=== PATIENT | female | born 1950 | race Caucasian/White ===

== ENCOUNTER → 2016-08-28 | Outpatient (CLI) | payer MEDICARE, BC, OTHER ==
[~2016-08-28] MED LIST: ASPI81TA85 PO; CALCTAB43 PO; DRIS50002 PO; LASI20TA PO; LOVE0.8I SC; MULT1TAB18 PO; OMEP40CA2 PO; SONA10CA6 PO; TAPA5TAB PO; WELLTAB40 PO
--- NOTE | 2016-08-28 12:13 | REP ---
Left lower extremity Duplex Doppler venous ultrasound: Real time compression and duplex Doppler interrogation of the left lower extremity deep venous system is performed. The left common femoral, superficial femoral and popliteal veins are fully compressible with transducer pressure and demonstrate normal spontaneous and phasic flow, without evidence of deep venous thrombosis. Impression: No evidence of deep venous thrombosis of the left lower extremity femoral popliteal venous system. Popliteal cyst is noted medially measuring 1.6 x 0.9 x 1.4 cm. Signed by Christian Mendez MD 08/28/2016 12:04 P
== END ==
LOC: M RAD 10:47
PROVIDERS: ATTEND Physician Assistant Medical
DX: I80.02 Phlebitis and thrombophlebitis of superficial vessels of left lower extremity (principal); M71.22 Synovial cyst of popliteal space [Baker], left knee
CPT/HCPCS: 93971; G0463

== ENCOUNTER 2016-09-13 08:52 | Inpatient (IN) | payer MEDICARE, BC, OTHER ==
[~2016-09-13] VITALS: Ht 167.6 cm; Wt 86.2 kg
[2016-09-13] MEDS ORDERED: MULT1TAB18 PO (09:35)
[2016-09-13] MEDS ORDERED: SONA10CA6 PO (09:35)
[2016-09-13] MEDS ORDERED: ASPI81TA85 PO (09:35)
[2016-09-13] MEDS ORDERED: CALCTAB43 PO (09:35)
[2016-09-13] MEDS ORDERED: TAPA5TAB PO (09:35)
[2016-09-13] MEDS ORDERED: LASI20TA PO (09:35)
[2016-09-13] MEDS ORDERED: OMEP40CA2 PO (09:35)
[2016-09-13] MEDS ORDERED: WELLTAB40 PO (09:35)
[2016-09-13] MEDS ORDERED: DRIS50002 PO (09:35)
[2016-09-13 09:50] LABS: BASO % 0.6 % (0.0-1.0); EOS # 0.2 K/mm3 (0.0-0.50); EOS % 2.7 % (0.0-3.0); LARGE UNSTAINED CELL # 0.2 K/mm3 (0.0-0.4); LARGE UNSTAINED CELL % 2.1 % (0.0-4.0); LYMPH # 2.2 K/mm3 (1.5-4.5); LYMPH % 23.1 % (24.0-44.0); MEAN CORPUSCULAR HGB CONC 33.1 g/dl (32.0-36.5); MEAN CORPUSCULAR VOLUME 84.6 fl (80.0-96.0); MONO # 0.8 K/mm3 (0.0-0.8); MONO % 8.9 % (0.0-5.0); NEUTROPHILS # 5.4 K/mm3 (1.8-7.7); NEUTROPHILS % 62.5 % (36.0-66.0); PLATELET COUNT, AUTOMATED 285 k/mm3 (150-450); WHITE BLOOD COUNT 8.6 K/mm3 (4.0-10.0)
[2016-09-13] MEDS ORDERED: ISOVUE-370 76% 100ML VIAL (Q9967) As Ordered ONE (10:02)
[2016-09-13 10:03] LABS: INR 0.89
[2016-09-13 10:20] LABS: ALBUMIN 3.8 GM/DL (3.2-5.2); ALBUMIN/GLOBULIN RATIO 0.93 (1.00-1.93); ALKALINE PHOSPHATASE 121 U/L (45-117); ALT/SGPT 26 U/L (12-78); ANION GAP 11 MEQ/L (8-16); AST/SGOT 26 U/L (15-37); BILIRUBIN,DIRECT 0.1 MG/DL (0.0-0.2); BILIRUBIN,TOTAL 0.4 MG/DL (0.2-1.0); BLOOD UREA NITROGEN 16 MG/DL (7-18); CALCIUM LEVEL 9.6 MG/DL (8.8-10.2); CARBON DIOXIDE LEVEL 27 MEQ/L (21-32); CHLORIDE LEVEL 103 MEQ/L (98-107); CREATININE FOR GFR 0.82 MG/DL (0.55-1.02); GLOMERULAR FILTRATION RATE > 60.0 (>45); GLUCOSE, FASTING 104 MG/DL (80-110); SODIUM LEVEL 141 MEQ/L (136-145); TOTAL PROTEIN 7.9 GM/DL (6.4-8.2)
[2016-09-13] MEDS ORDERED: ASPIRIN 325 MG TAB PO ONE (10:45)
--- NOTE | 2016-09-13 11:13 | REP ---
BILATERAL LOWER EXTREMITY DUPLEX VENOUS ULTRASOUND: HISTORY: Shortness of breath and chest pain, question DVT. COMPARISON: Venous sonography left lower extremity, August 28, 2016. TODAY'S SONOGRAPHIC FINDINGS: The deep veins are anechoic and fully compressible from the groin to the popliteal fossa in the right lower extremity on two-dimensional scanning. Color-flow imaging is homogeneous. Spectral Doppler interrogation demonstrates intact respiratory variation in flow and normal manual augmentation of flow. There is no evidence of right lower extremity duplex venous thrombosis. On the left, a Parkinson cyst is seen in the posterior popliteal soft tissues measuring 2.3 x 2.0 x 1.3 cm. There is occlusive thrombus in the proximal greater saphenous vein on the left side. This extends for a short segment into the common femoral vein, consistent with deep vein thrombosis. The common femoral vein thrombus is nonocclusive. The femoral vein and popliteal vein are anechoic and fully compressible with unremarkable Doppler flow. IMPRESSION: 1. Negative right lower extremity duplex venous ultrasound. 2. Deep vein thrombosis on the left with nonocclusive thrombus in the common femoral vein extending from the proximal greater saphenous vein. Occlusive greater saphenous vein thrombosis is seen. Signed by Sang Jeffries MD 09/13/2016 06:18 P
--- NOTE | 2016-09-13 11:14 | REP ---
CT PULMONARY ANGIOGRAM: With IV contrast. HISTORY: Question pulmonary embolism. Shortness of breath and chest pain. No comparison study. Contrast dose: 75 mL of Isovue [address] TECHNIQUE: Helical scanning is acquired and overlapping 1.5 mm and contiguous 3 mm axial images are reformatted. In addition, a 3D work station is deployed to generate thick slab maximum intensity projection images in sagittal and coronal imaging projections. CT PULMONARY ANGIOGRAPHIC FINDINGS: There is good opacification of the pulmonary arterial tree. There are multiple filling defects in the central segmental and subsegmental pulmonary arteries bilaterally involving the right upper lobe, right lower lobe, left lower lobe and left upper lobe. No central thrombi are seen. Thoracic aorta is unremarkable except for some vascular calcification. No infiltrate or infarction is seen in the lung harvey. There are granulomatous calcifications in the left lower lobe. Granulomatous calcifications are scattered about the spleen. There are lymph node calcific residuals in the left hilus. No hilar adenopathy is seen. The thyroid gland is enlarged bilaterally with multiple nodules and two left-sided calcifications. There is a sliding type hiatal hernia. There is moderate diffuse fatty infiltration of the liver. No pulmonary mass lesion is seen. IMPRESSION: 1. Moderate burden of bilateral segmental and subsegmental pulmonary emboli; upper and lower lobes on each side. 2. Hiatal hernia. 3. Old granulomatous changes. 4. Multinodular goiter. 5. Fatty infiltration of the liver. Signed by Sang Jeffries MD 09/13/2016 06:18 P
--- NOTE | 2016-09-13 11:20 | ECGEPIP ---
Stationary ECG Study [facility] - ED Test Date: 2016-09-13 Pat Name: SINCERE MCCAIN Department: Room: - Gender: F [employer] Operator: zia : 1950 Requested By: Belkis Salmeron Order Number: [id number] Reading MD: Jordan Kenney Measurements Intervals [place] Rate: 82 P: 64 VT: 178 QRS: -12 QRSD: 81 T: 82 QT: 374 QTc: 438 Interpretive Statements SINUS RHYTHM INFERIOR MYOCARDIAL INFARCTION, OF INDETERMINATE AGE NO PRIORS Electronically Signed On 09-13-2016 11:20:22 EDT by Jordan Kenney
[2016-09-13] MEDS ORDERED: ENOXAPARIN 100MG/1ML SYRINGE (J1650) SC ONE (12:00)
[2016-09-13 12:56] LABS: FREE T4 1.37 NG/DL (0.76-1.46)
--- NOTE | 2016-09-13 16:04 | HPE ---
DATE OF ADMISSION: 09/13/2016 CHIEF COMPLAINT: Dyspnea on exertion. Elsa is a 65-year-old woman who is followed by Dr. Castro and has been seen recently several times related to problem on her left leg. She had swelling discomfort left calf and was diagnosis correctly with in retrospect was seems to be correct with cellulitis and superficial thrombophlebitis. The leg seemed to be getting better with less swelling and discomfort, although tender ropey thrombosed veins are still apparent. Then beginning 5 days ago she began have sensation of discomfort in her left chest and the left arm, aching and a sense of dyspnea with exertion. She contacted care provider today and was directed appropriately to come to ED for evaluation. Emergency department (ED) evaluation Included ultrasound and CT angiography. Vascular ultrasound showed deep vein thrombus in the left with nonocclusive thrombus in the common femoral vein extending from the proximal great saphenous vein. Occlusive greater saphenous vein thrombosis is also seen. There was also a Parkinson's cyst measuring 2.3 x 2.0 x 1.3 cm. The right appeared to be normal. Also done was CT angiography interpreted by Dr. Jeffries that shows some moderate burden of bilateral segmental and subsegmental pulmonary emboli upper and lower lobes and I a hiatal hernia, old granulomatous changes, a multinodular goiter and fatty infiltration of liver. PAST MEDICAL HISTORY: Includes toxic multinodular goiter. 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 She quit smoking age 46, diabetes mellitus type 2 historically, and degenerative disk disease lumbar with anterolisthesis demonstrated in September 2012. She had colonoscopy in 2011 and in 2005. FAMILY HISTORY: Remarkable for father dying of renal cancer and past history of colon cancer. Mother diabetes mellitus, hypertension, still alive. Sister with diabetes and a son with multiple sclerosis. Last Pap smear was in 2014. She had thyroid fine-needle aspiration done in 2013. She was negative. REVIEW OF SYSTEMS: No trouble with vision. No recent headaches. No recent trouble with nausea, vomiting or diarrhea, heartburn has been well-controlled by her current treatment. No wheezing, no cough productive, no fevers, chills, etc. No rashes other than the redness on the left leg associated with the cellulitis recently noted. No numbness, tingling, fainting or loss of consciousness. No dysuria. PHYSICAL EXAMINATION: VITAL SIGNS: The patient is demonstrating temperature of 98.9, pulse 84. Initial systolic pressure 165, diastolic 90, subsequently found to be 133/69 and pulse 16, respiratory rate 90, O2 sat ranges from 90-96%. GENERAL: She is alert, pleasant, no apparent distress. She is conversant and does not look to be dyspneic. HEENT: Normocephalic, atraumatic. Full extraocular movements. No proptosis. No stare. No lid lack. Oropharynx unremarkable. Palpable adenopathy. The right lobe of thyroid is significantly enlarged, nontender, firmish. LUNGS: Clear to auscultation. Good air flow throughout. No dullness. HEART: Regular rhythm. No murmurs, gallops or rubs are noted. EXAMINATION OF THE ABDOMEN: Shows protuberant rounded abdomen, Nontender. No mass, guarding or rebound. EXTREMITIES: Show no deformity and no significant edema. She does have a palpable tender varicose vein medial left calf. Some redness but no open areas are noted. Pulses are intact and normal throughout. She has 2+ upper and lower extremities. There is no pedal edema. There is no clubbing. NEURO EXAM: Shows patient to be alert, oriented, fully conversant. No cranial nerve deficits or detected. Moves all extremities well. No sensory deficits detected. Gait was not tested. LABORATORY DATA: Pro time and PTT within normal limits.. Glucose 104, BUN 16, creatinine 0.82, sodium 141, potassium 4.0, chloride 103, CO2 27, anion gap calculated at 11. Calcium 9.6. AST and ALT are both 26. CPK 271, CK-MB 2.4, MB-CK relative index of 3.38. Alkaline phosphatase 121, bilirubin 0.4, total was 0.1. Direct albumin 3.8. Troponin I 0.14, BNP 160. CBC shows a total white count of 86,000 with hemoglobin of 13.5. Differential is remarkable only for slightly low lymphocyte percentage at 23.1% 8 monocytes count of 8.9%. EKG Q-waves in III and F. Cannot rule out previous inferior wall [place]. ASSESSMENT: The patient admitted with pulmonary embolus symptoms including transient left chest pain, dyspnea on exertion after approximately 1 month duration of history of superficial thrombophlebitis and now evidence of deep vein thrombosis. This is her first episode of deep vein clotting and there is no definite family history of deep vein thrombosis. The patient has provocative factors specifically of the superficial varicosities which show evidence of active thrombosis. PLAN: She will be admitted. Lovenox 90 mg subcu every 12 hours. This will run for total of 5 days. Anticipate that hospital stay until we are convinced that she is stable and improving on this regimen. At the end of 5 days she will transition to oral agent. The patient's preference at this time would be a novel or oral anticoagulant such as Xarelto or Lovenox as opposed to warfarin. The GERD will be treated with house PPI substituting for her omeprazole. Resuming her usual omeprazole upon discharge. Will continue Wellbutrin for history of depression. The non alcoholic steatohepatitis requires no benefits from no active current treatment and simply will be monitored. Of course DVT prophylaxis is being provided in the form of acute action treatment for fresh clot. Activity will be as tolerated on the floor. Oxygen support to keep her sat above 92%. Anticipate discharge in 2-3 days once we are convinced that her pulmonary embolism situation stabilized. Recommended admission to a monitored floor because of the pulmonary embolus burden.
[2016-09-13 17:15] VITALS: BP 140/71
[2016-09-13] MEDS: FUROSEMIDE 20 MG TAB PO SCH (17:39)
[2016-09-13 19:52] VITALS: BP 133/72
[2016-09-13] MEDS: ENOXAPARIN 100MG/1ML SYRINGE (J1650) SC SCH (22:00)
[2016-09-13] MEDS: buPROPion **XL** TABLET 150MG (WELLBUTRIN XL) PO SCH (22:00)
[2016-09-13 23:59] VITALS: BP 123/63
[2016-09-14 04:00] VITALS: BP 115/63
[2016-09-14 06:13] LABS: ANION GAP 8 MEQ/L (8-16); BLOOD UREA NITROGEN 15 MG/DL (7-18); CALCIUM LEVEL 9.1 MG/DL (8.8-10.2); CARBON DIOXIDE LEVEL 27 MEQ/L (21-32); CHLORIDE LEVEL 105 MEQ/L (98-107); CREATININE FOR GFR 0.71 MG/DL (0.55-1.02); GLOMERULAR FILTRATION RATE > 60.0 (>45); GLUCOSE, FASTING 105 MG/DL (80-110); POTASSIUM SERUM 4.1 MEQ/L (3.5-5.1); SODIUM LEVEL 140 MEQ/L (136-145)
[2016-09-14] MEDS: ACETAMINOPHEN TAB 650MG DOSE (2X325MG) PO PRN ×2 (06:59→15:28)
[2016-09-14 08:00] VITALS: BP 124/67
[2016-09-14] MEDS: ENOXAPARIN 100MG/1ML SYRINGE (J1650) SC SCH ×2 (09:57→20:51)
[2016-09-14] MEDS: PANTOPRAZOLE 40MG TAB (PROTONIX) PO SCH (09:59)
[2016-09-14] MEDS: FUROSEMIDE 20 MG TAB PO SCH (09:59)
[2016-09-14 10:05] LABS: MEAN CORPUSCULAR HEMOGLOBIN 27.2 pg (27.0-33.0); MEAN CORPUSCULAR HGB CONC 32.1 g/dl (32.0-36.5); MEAN CORPUSCULAR VOLUME 84.9 fl (80.0-96.0); RED CELL DISTRIBUTION WIDTH 13.1 % (11.5-14.5); WHITE BLOOD COUNT 7.4 K/mm3 (4.0-10.0)
--- NOTE | 2016-09-14 11:12 | IPNPDOC ---
Subjective Date Seen The patient was seen on 09/14/16. Subjective Chief Complaint/HPI The patient is a 65-year-old female admitted with a reason for visit of Lef Leg Dvt, Pulmonary Embolism. Constitutional: Denies: Chills, Fatigue, Weakness Skin: Reports: Other ( skin left medial calf with varicose veins with thrombosis, no change, no acute inflammation.), Denies: Jaundice, Rash Pulmonary: Denies: Cough, Dyspnea, Pleuritic Chest Pain Cardiovascular: Denies: Chest Pain, Edema, Orthopnea, Palpitations Objective Physical Examination General Exam: Positive: Cooperative, No Acute Distress Chest Exam: Positive: Clear to auscultation, Normal air movement, Negative: Rales, Rhonchi, Wheezing Heart Exam: Positive: Normal S1, Normal S2, Rate Normal, Regular Rhythm Extremity Exam: Positive: Other (varicose veins with thrombosis, left medial calf.) Skin Exam: Positive: Other skin issue (stasis changes left leg, vs post- inflammatory hyperpigmentation), Negative: Breakdown Neuro Exam: Positive: Normal Gait, Normal Speech Assessment /Plan Problems (1) Pulmonary embolism Status: Acute (2) Left leg DVT Status: Acute (3) Toxic multinodular goiter Status: Chronic Response to Treatment: Stable Problem Specific Plan: Monitor Clinically Plan/VTE VTE Prophylaxis Ordered?: Yes Plan Activity: Continue Current Anticipated Discharge: Home (Home tomorrow with Lovenox at current dose, change to Xarelto on day 6) VS, I&O, 24H, Joann Vital Signs/I&O Vital Signs Date Time Temp Pulse Resp B/P Pulse Ox O2 Delivery O2 Flow Rate FiO2 09/14/16 08:00 98.5 77 18 124/67 95 Room Air I&O- Last 24 Hours up to 6 AM 09/14/16 06:00 Intake Total 920 ml Output Total 500 ml Balance 420 ml Laboratory Data 24H LABS Laboratory Tests 2 09/13/16 12:58: Creatine Kinase MB 2.3, Creatine Kinase MB Relative Index 3.96, Total Creatine Kinase 58, Troponin I 0.14H 09/13/16 20:01: Creatine Kinase MB 2.3, Creatine Kinase MB Relative Index 4.18H, Total Creatine Kinase 55, Troponin I 0.11#H 09/14/16 05:42: Creatine Kinase MB 1.9, Creatine Kinase MB Relative Index 3.58, Total Creatine Kinase 53, Troponin I 0.13H, Anion Gap 8, Blood Urea Nitrogen 15, Creatinine 0.71, Sodium Level 140, Potassium Level 4.1, Chloride Level 105, Carbon Dioxide Level 27, Calcium Level 9.1, Glomerular Filtration Rate > 60.0 CBC/BMP Laboratory Tests 09/14/16 05:42 Calcium Level 9.1, Total Creatine Kinase 53 09/14/16 09:50 Red Blood Count 4.61, Mean Corpuscular Volume 84.9, Mean Corpuscular Hemoglobin 27.2, Mean Corpuscular Hemoglobin Concent 32.1, Red Cell Distribution Width 13.1 Parish El MD Sep 14, 2016 11:12
[2016-09-14] MEDS ORDERED: LOVE0.8I SC (11:19)
[2016-09-14 13:15] VITALS: BP 139/74
[2016-09-14] MEDS: buPROPion **XL** TABLET 150MG (WELLBUTRIN XL) PO SCH (20:50)
[2016-09-14 22:00] VITALS: BP 125/67
[2016-09-15 06:00] VITALS: BP 128/62
[2016-09-15 07:42] LABS: ANION GAP 7 MEQ/L (8-16); BLOOD UREA NITROGEN 16 MG/DL (7-18); CALCIUM LEVEL 9.6 MG/DL (8.8-10.2); CARBON DIOXIDE LEVEL 29 MEQ/L (21-32); CHLORIDE LEVEL 104 MEQ/L (98-107); CREATININE FOR GFR 0.71 MG/DL (0.55-1.02); GLOMERULAR FILTRATION RATE > 60.0 (>45); GLUCOSE, FASTING 107 MG/DL (80-110); POTASSIUM SERUM 4.6 MEQ/L (3.5-5.1); SODIUM LEVEL 140 MEQ/L (136-145)
[2016-09-15] MEDS: ENOXAPARIN 100MG/1ML SYRINGE (J1650) SC SCH (08:40)
[2016-09-15] MEDS: PANTOPRAZOLE 40MG TAB (PROTONIX) PO SCH (08:42)
[2016-09-15] MEDS: FUROSEMIDE 20 MG TAB PO SCH (08:42)
[2016-09-15] MEDS ORDERED: PREVNAR 13 VACCINE SYRINGE (CPT CODE:90670) IM ONE (09:00)
--- NOTE | 2016-09-16 09:33 | DSES ---
DATE OF ADMISSION: 09/13/2016 DATE OF DISCHARGE: 09/15/2016 ATTENDING PHYSICIAN: Dr. Parish El PRIMARY CARE PROVIDER: Dr. Felipe Castro and Elsa Conley PA-C 65-year-old female who had been seen recently several times prior to presentation to the [facility] emergency department for swelling and discomfort to the left calf and treatment for cellulitis with superficial thrombophlebitis. On workup in the emergency room, which included ultrasound CT angiography, the patient was found to have a non-occlusive thrombus in the common femoral vein extending from the proximal great saphenous vein. Occlusive greater saphenous vein thrombosis was also seen. CT of chest demonstrated moderate burden of bilateral segmental and subsegmental pulmonary emboli upper and lower lobes along with a hiatal hernia. The patient was subsequently admitted and placed on Lovenox 90 mg twice a day subcutaneous and monitored for any breathing abnormalities. The patient has progressed well and is able to ambulate without hypoxia, palpitations, or chest pain. She has been off of oxygen throughout the hospitalization. Vital signs have remained stable. Labs have remained stable. Most recent CBC shows a hemoglobin and hematocrit (H and H) of 12 and 39, white blood cell count of 7,000. HEENT: Neck is supple, without lymphadenopathy or jugular venous distention (JVD). Cardiovascular: Heart rate and rhythm regular. Pulmonary: Lungs clear to auscultation bilaterally. ASSESSMENT: 1. Pulmonary embolus. 2. Deep vein thrombosis. 3. History of hyperthyroidism with toxic multinodular goiter. 4. Depression. 5. Gastroesophageal reflux disease (GERD). 6. Non-alcoholic fatty liver disease. PLAN: The patient will be discharged home. Diet is as tolerated. Activity is as tolerated. Medications: - Lovenox 90 mg subcutaneous twice a day for 6 more doses, patient will then transition to Xarelto starter pack which is already sent to her pharmacy The rest of her medications include: - bupropion 30 mg by mouth at bedtime - calcium with vitamin D 600 calcium with 400 international units of vitamin D one daily - furosemide 20 mg by mouth daily - Tapazole 5 mg tablet, she is to take 1 and1/2 tablets by mouth twice a day - multivitamin 1 daily - omeprazole 40 mg daily - Sonata 10 mg by mouth daily as needed sleep - vitamin D 50,000 international units by mouth monthly Aspirin was stopped due to the initiation of Lovenox. Patient is discharged in stable and satisfactory condition with no further questions at the time of discharge.
== END 2016-09-15 09:56 | disposition home or self-care (01) | DRG 176 ==
LOC: M ED 11:12 → M ED INP 12:05 → M PCU 17:17 → M MS5PR 09-14 13:14
PROVIDERS: ADMIT Family Medicine; ATTEND Family Medicine
DX: I26.99 Other pulmonary embolism without acute cor pulmonale (principal); I82.412 Acute embolism and thrombosis of left femoral vein; I82.812 Embolism and thrombosis of superficial veins of left lower extremity; K76.0 Fatty (change of) liver, not elsewhere classified; K21.9 Gastro-esophageal reflux disease without esophagitis; F32.9 Major depressive disorder, single episode, unspecified; E05.00 Thyrotoxicosis with diffuse goiter without thyrotoxic crisis or storm; K44.9 Diaphragmatic hernia without obstruction or gangrene; Z79.899 Other long term (current) drug therapy; Z87.891 Personal history of nicotine dependence; Z83.3 Family history of diabetes mellitus; Z82.49 Family history of ischemic heart disease and other diseases of the circulatory system; Z80.51 Family history of malignant neoplasm of kidney; Z80.0 Family history of malignant neoplasm of digestive organs

== ENCOUNTER → 2016-09-18 | Outpatient (CLI) | payer MEDICARE, BC, OTHER ==
[2016-09-18 13:21] LABS: FREE T4 1.19 NG/DL (0.76-1.46)
== END ==
LOC: M WUC 09:00
PROVIDERS: ATTEND Physician Assistant Medical
DX: E05.21 Thyrotoxicosis with toxic multinodular goiter with thyrotoxic crisis or storm (principal)
CPT/HCPCS: 36415; 84439; 84443; G0463

== ENCOUNTER → 2016-11-14 | Outpatient (REF) | payer MEDICARE, BC, OTHER ==
[2016-11-14 18:13] LABS: INR 1.12
[2016-11-14 18:18] LABS: BASO % 0.5 % (0.0-1.0); EOS # 0.2 K/mm3 (0.0-0.50); EOS % 2.4 % (0.0-3.0); LARGE UNSTAINED CELL # 0.1 K/mm3 (0.0-0.4); LARGE UNSTAINED CELL % 1.6 % (0.0-4.0); LYMPH # 1.7 K/mm3 (1.5-4.5); LYMPH % 24.7 % (24.0-44.0); MEAN CORPUSCULAR HEMOGLOBIN 28.6 pg (27.0-33.0); MEAN CORPUSCULAR HGB CONC 32.6 g/dl (32.0-36.5); MEAN CORPUSCULAR VOLUME 87.7 fl (80.0-96.0); MONO # 0.6 K/mm3 (0.0-0.8); MONO % 8.8 % (0.0-5.0); NEUTROPHILS # 4.3 K/mm3 (1.8-7.7); NEUTROPHILS % 61.9 % (36.0-66.0); PLATELET COUNT, AUTOMATED 258 k/mm3 (150-450); RED CELL DISTRIBUTION WIDTH 14.2 % (11.5-14.5); WHITE BLOOD COUNT 6.9 K/mm3 (4.0-10.0)
[2016-11-14 19:04] LABS: ALBUMIN 3.8 GM/DL (3.2-5.2); ALBUMIN/GLOBULIN RATIO 1.06 (1.00-1.93); ALKALINE PHOSPHATASE 119 U/L (45-117); ALT/SGPT 28 U/L (12-78); ANION GAP 7 MEQ/L (8-16); AST/SGOT 21 U/L (15-37); BILIRUBIN,TOTAL 0.2 MG/DL (0.2-1.0); BLOOD UREA NITROGEN 23 MG/DL (7-18); CALCIUM LEVEL 9.3 MG/DL (8.8-10.2); CARBON DIOXIDE LEVEL 29 MEQ/L (21-32); CHLORIDE LEVEL 105 MEQ/L (98-107); CHOLESTEROL LEVEL 187 MG/DL (<200); CREATININE FOR GFR 0.84 MG/DL (0.55-1.02); FERRITIN 89 NG/ML (8-252); GLOMERULAR FILTRATION RATE > 60.0 (>45); GLUCOSE, FASTING 87 MG/DL (80-110); PERCENT SATURATION 9.8 % (13.2-37.4); POTASSIUM SERUM 4.1 MEQ/L (3.5-5.1); SODIUM LEVEL 141 MEQ/L (136-145); TOTAL IRON BINDING CAPACITY 430 UG/DL (250-450); TOTAL PROTEIN 7.4 GM/DL (6.4-8.2); TRIGLYCERIDES LEVEL 127 MG/DL (<150)
[2016-11-22 00:10] LABS: PROTEIN C ANTIGEN 158 % (60-150)
== END ==
LOC: M SFHCPLAZ 17:12
PROVIDERS: ATTEND Family Medicine
DX: E55.9 Vitamin D deficiency, unspecified (principal); R73.01 Impaired fasting glucose; Z86.711 Personal history of pulmonary embolism; I87.2 Venous insufficiency (chronic) (peripheral); I50.30 Unspecified diastolic (congestive) heart failure; M85.80 Other specified disorders of bone density and structure, unspecified site; E05.21 Thyrotoxicosis with toxic multinodular goiter with thyrotoxic crisis or storm; F32.9 Major depressive disorder, single episode, unspecified; E66.9 Obesity, unspecified; E21.3 Hyperparathyroidism, unspecified; K21.9 Gastro-esophageal reflux disease without esophagitis
CPT/HCPCS: 36415; 80053; 80061; 81001; 81240; 81241; 82043; 82306; 82728; 83036; 83550; 83970; 85025; 85302; 85303; 85610; 85730; G0463

== ENCOUNTER → 2017-03-22 | Outpatient (REF) | payer MEDICARE, BC, OTHER ==
[~2017-03-22] MED LIST changes: -CALCTAB43 PO; +CALCTAB74 PO; +SONA10CA23 PO; -SONA10CA6 PO
[2017-03-22 16:31] LABS: FREE T4 1.01 NG/DL (0.76-1.46); PERCENT SATURATION 13.7 % (13.2-45.0)
[2017-03-22 21:38] LABS: MEAN CORPUSCULAR HEMOGLOBIN 28.9 pg (27.0-33.0); MEAN CORPUSCULAR HGB CONC 33.6 g/dl (32.0-36.5); MEAN CORPUSCULAR VOLUME 86.3 fl (80.0-96.0); WHITE BLOOD COUNT 6.4 K/mm3 (4.0-10.0)
[2017-03-22 23:14] LABS: EOSINOPHILS 4 % (0-5)
[2017-03-22 23:15] LABS: PLATELET CLUMPS SMALL AMT
== END ==
LOC: M SFHCPLAZ 13:12
PROVIDERS: ATTEND Family Medicine
DX: E05.21 Thyrotoxicosis with toxic multinodular goiter with thyrotoxic crisis or storm (principal); I87.2 Venous insufficiency (chronic) (peripheral); R73.01 Impaired fasting glucose; D50.9 Iron deficiency anemia, unspecified; I50.30 Unspecified diastolic (congestive) heart failure; M85.80 Other specified disorders of bone density and structure, unspecified site; E55.9 Vitamin D deficiency, unspecified; F32.9 Major depressive disorder, single episode, unspecified; E66.9 Obesity, unspecified; E21.3 Hyperparathyroidism, unspecified; K21.9 Gastro-esophageal reflux disease without esophagitis; E78.2 Mixed hyperlipidemia
CPT/HCPCS: 82607; 82728; 83036; 83550; 84439; 84443; 85007; 85027; G0463

== ENCOUNTER → 2017-07-03 | Outpatient (CLI) | payer MEDICARE, BC | LOC: M WHC 08:53 | DX: Z12.31 Encounter for screening mammogram for malignant neoplasm of breast (principal); M85.80 Other specified disorders of bone density and structure, unspecified site; R92.0 Mammographic microcalcification found on diagnostic imaging of breast; M81.0 Age-related osteoporosis without current pathological fracture | CPT/HCPCS: 77067 ==

== ENCOUNTER → 2017-07-19 | Outpatient (CLI) | payer MEDICARE, BC, OTHER | LOC: M RAD 11:44 | DX: R92.0 Mammographic microcalcification found on diagnostic imaging of breast (principal) | CPT/HCPCS: 77065 ==

== ENCOUNTER → 2017-07-27 | Outpatient (REF) | payer MEDICARE, OTHER ==
[2017-07-27 12:25] LABS: HEMATOCRIT 44.3 % (36.0-47.0)
[2017-07-27 12:25] LABS: BASO % 0.5 % (0.0-1.0); EOS # 0.3 10^3/uL (0.0-0.50); HEMATOCRIT 44.8 % (36.0-47.0); HEMOGLOBIN 14.3 g/dl (12.0-16.0); IMMATURE GRANULOCYTE # 0.1 10^3/uL (0-0); IMMATURE GRANULOCYTE % 0.7 % (0-0); LYMPH % 24.2 % (24.0-44.0); MEAN CORPUSCULAR HEMOGLOBIN 27.7 pg (27.0-33.0); MEAN CORPUSCULAR HGB CONC 31.9 g/dl (32.0-36.5); MEAN CORPUSCULAR VOLUME 86.7 fl (80.0-96.0); MONO # 1.1 10^3/uL (0.0-0.8); MONO % 13.5 % (0.0-5.0); NEUTROPHILS # 4.8 10^3/uL (1.8-7.7); NEUTROPHILS % 58.1 % (36.0-66.0); PLATELET COUNT, AUTOMATED 266 10^3/uL (150-450); RED BLOOD COUNT 5.17 10^6/uL (4.00-5.40); RED CELL DISTRIBUTION WIDTH 13.4 % (11.5-14.5); WHITE BLOOD COUNT 8.3 10^3/uL (4.0-10.0)
[2017-07-27 12:45] LABS: PTH INTACT 62.2 PG/ML (14.0-72.0); VITAMIN B12 LEVEL 499 PG/ML (247-911)
[2017-07-27 12:49] LABS: TOTAL 25(OH) VITAMIN D 34.9 NG/ML (30.0-100.0)
[2017-07-27 13:07] LABS: ALBUMIN 3.9 GM/DL (3.2-5.2); ALBUMIN/GLOBULIN RATIO 0.98 (1.00-1.93); ALKALINE PHOSPHATASE 112 U/L (45-117); ALT/SGPT 32 U/L (12-78); ANION GAP 6 MEQ/L (8-16); AST/SGOT 23 U/L (7-37); BILIRUBIN,TOTAL 0.4 MG/DL (0.2-1.0); BLOOD UREA NITROGEN 15 MG/DL (7-18); CARBON DIOXIDE LEVEL 31 MEQ/L (21-32); CHLORIDE LEVEL 104 MEQ/L (98-107); CREATININE FOR GFR 0.72 MG/DL (0.55-1.02); FREE T4 1.53 NG/DL (0.76-1.46); GLOMERULAR FILTRATION RATE > 60.0 (>45); GLUCOSE, FASTING 86 MG/DL (70-100); POTASSIUM SERUM 4.2 MEQ/L (3.5-5.1); SODIUM LEVEL 141 MEQ/L (136-145); THYROID STIMULATING HORMONE 0.028 uIU/ML (0.358-3.740); TOTAL PROTEIN 7.9 GM/DL (6.4-8.2)
[2017-07-27 14:30] LABS: PRETREATED FOLATE FOR RBCFOL 17.5 NG/ML; RBC FOLATE 829.6 NG/ML (280-791)
== END ==
LOC: M SFHCPLAZ 10:43
DX: E53.8 Deficiency of other specified B group vitamins (principal); E05.21 Thyrotoxicosis with toxic multinodular goiter with thyrotoxic crisis or storm; E21.3 Hyperparathyroidism, unspecified
CPT/HCPCS: 84443

== ENCOUNTER → 2017-07-27 | Outpatient (CLI) | payer MEDICARE, OTHER | LOC: M SMT 11:28 | DX: M47.816 Spondylosis without myelopathy or radiculopathy, lumbar region (principal); M51.36 Other intervertebral disc degeneration, lumbar region; M51.37 Other intervertebral disc degeneration, lumbosacral region; M25.78 Osteophyte, vertebrae; M43.16 Spondylolisthesis, lumbar region; E53.8 Deficiency of other specified B group vitamins; E05.21 Thyrotoxicosis with toxic multinodular goiter with thyrotoxic crisis or storm; E21.3 Hyperparathyroidism, unspecified | CPT/HCPCS: 72114; 84443 ==

== ENCOUNTER → 2017-08-14 | Outpatient (CLI) | payer MEDICARE, BC, OTHER ==
[~2017-08-14] MED LIST changes: -ASPI81TA85 PO; -CALCTAB74 PO; -DRIS50002 PO; -LASI20TA PO; +LIDOCAINE 1% MDV 20ML VIAL As Ordered; -LOVE0.8I SC; -MULT1TAB18 PO; -OMEP40CA2 PO; -SONA10CA23 PO; -TAPA5TAB PO; -WELLTAB40 PO
== END ==
LOC: M RADPRO 12:31
DX: D05.12 Intraductal carcinoma in situ of left breast (principal)
CPT/HCPCS: 19081

== ENCOUNTER → 2017-09-21 | Outpatient (REF) | payer MEDICARE, OTHER ==
[2017-09-21 15:59] LABS: BASO # 0.1 10^3/uL (0.0-0.2); BASO % 0.6 % (0.0-1.0); EOS # 0.3 10^3/uL (0.0-0.50); EOS % 3.7 % (0.0-3.0); HEMATOCRIT 43.1 % (36.0-47.0); HEMOGLOBIN 13.7 g/dl (12.0-16.0); IMMATURE GRANULOCYTE % 0.5 % (0-3.0); LYMPH # 2.3 10^3/uL (1.5-4.5); MEAN CORPUSCULAR HEMOGLOBIN 27.4 pg (27.0-33.0); MEAN CORPUSCULAR HGB CONC 31.8 g/dl (32.0-36.5); MEAN CORPUSCULAR VOLUME 86.2 fl (80.0-96.0); MONO % 11.2 % (0.0-5.0); NEUTROPHILS # 4.9 10^3/uL (1.8-7.7); PLATELET COUNT, AUTOMATED 239 10^3/uL (150-450); RED CELL DISTRIBUTION WIDTH 13.6 % (11.5-14.5); RETICULOCYTE # 80.5 10^9/L (17-77); RETICULOCYTE % 1.6 % (0.5-1.5); WHITE BLOOD COUNT 8.6 10^3/uL (4.0-10.0)
[2017-09-21 16:14] LABS: INR 0.88
[2017-09-21 16:41] LABS: ALBUMIN 3.7 GM/DL (3.2-5.2); ALBUMIN/GLOBULIN RATIO 0.95 (1.00-1.93); ALKALINE PHOSPHATASE 117 U/L (45-117); ALT/SGPT 31 U/L (12-78); ANION GAP 6 MEQ/L (8-16); AST/SGOT 21 U/L (7-37); BILIRUBIN,TOTAL 0.5 MG/DL (0.2-1.0); BLOOD UREA NITROGEN 15 MG/DL (7-18); CALCIUM LEVEL 9.7 MG/DL (8.8-10.2); CARBON DIOXIDE LEVEL 29 MEQ/L (21-32); CHLORIDE LEVEL 106 MEQ/L (98-107); CREATININE FOR GFR 0.67 MG/DL (0.55-1.30); GLOMERULAR FILTRATION RATE > 60.0 (>45); GLUCOSE, FASTING 79 MG/DL (70-100); POTASSIUM SERUM 4.3 MEQ/L (3.5-5.1); SODIUM LEVEL 141 MEQ/L (136-145); THYROID STIMULATING HORMONE 0.007 uIU/ML (0.358-3.740); TOTAL PROTEIN 7.6 GM/DL (6.4-8.2)
== END ==
LOC: M SFHCPLAZ 12:47
DX: Z01.818 Encounter for other preprocedural examination (principal); D05.12 Intraductal carcinoma in situ of left breast; I50.30 Unspecified diastolic (congestive) heart failure; D50.9 Iron deficiency anemia, unspecified; E05.21 Thyrotoxicosis with toxic multinodular goiter with thyrotoxic crisis or storm
CPT/HCPCS: 83735

== ENCOUNTER → 2017-10-01 | Outpatient (CLI) | payer MEDICARE, BC, OTHER | LOC: M RAD 07:52 | DX: E05.90 Thyrotoxicosis, unspecified without thyrotoxic crisis or storm (principal) | CPT/HCPCS: 76536 ==

== ENCOUNTER → 2017-10-16 | Outpatient (CLI) | payer MEDICARE, BC, OTHER | LOC: M ONCR 08:55 | DX: C50.912 Malignant neoplasm of unspecified site of left female breast (principal); Z86.718 Personal history of other venous thrombosis and embolism; E07.9 Disorder of thyroid, unspecified; Z87.891 Personal history of nicotine dependence | CPT/HCPCS: G0463 ==

== ENCOUNTER 2017-10-17 13:52 | Outpatient (RCR) | payer MEDICARE, BC, OTHER | END 2017-10-29 | LOC: M ONCR 13:52 | DX: C50.812 Malignant neoplasm of overlapping sites of left female breast (principal) | CPT/HCPCS: 77300 ==

== ENCOUNTER 2017-10-30 09:08 | Outpatient (RCR) | payer MEDICARE, BC, OTHER | END 2017-11-29 | LOC: M ONCR 09:08 | DX: C50.812 Malignant neoplasm of overlapping sites of left female breast (principal) | CPT/HCPCS: 77300 ==

== ENCOUNTER → 2018-01-10 | Outpatient (CLI) | payer MEDICARE, BC, OTHER | LOC: M ONCR 13:04 | DX: C50.812 Malignant neoplasm of overlapping sites of left female breast (principal) ==

== ENCOUNTER → 2018-05-30 | Outpatient (REF) | payer MEDICARE, OTHER ==
[2018-05-30 13:36] LABS: BASO % 0.5 % (0.0-1.0); EOS # 0.4 10^3/uL (0.0-0.50); EOS % 5.2 % (0.0-3.0); HEMATOCRIT 44.4 % (36.0-47.0); HEMOGLOBIN 14.1 g/dl (12.0-15.5); IMMATURE GRANULOCYTE % 0.6 % (0-3.0); LYMPH # 1.3 10^3/uL (1.5-4.5); LYMPH % 16.4 % (24.0-44.0); MEAN CORPUSCULAR HEMOGLOBIN 28.3 pg (27.0-33.0); MEAN CORPUSCULAR HGB CONC 31.8 g/dl (32.0-36.5); MEAN CORPUSCULAR VOLUME 89.2 fl (80.0-96.0); MONO % 12.4 % (0.0-5.0); NEUTROPHILS # 5.2 10^3/uL (1.8-7.7); NEUTROPHILS % 64.9 % (36.0-66.0); RED BLOOD COUNT 4.98 10^6/uL (4.00-5.40); RED CELL DISTRIBUTION WIDTH 13.3 % (11.5-14.5); WHITE BLOOD COUNT 8.1 10^3/uL (4.0-10.0)
[2018-05-30 14:13] LABS: PLATELET COUNT, AUTOMATED 271 10^3/uL (150-450); POS COUNT POS FLAG
[2018-05-30 14:37] LABS: ALBUMIN 3.5 GM/DL (3.2-5.2); ALBUMIN/GLOBULIN RATIO 0.92 (1.00-1.93); ALKALINE PHOSPHATASE 113 U/L (45-117); ALT/SGPT 26 U/L (12-78); ANION GAP 9 MEQ/L (8-16); AST/SGOT 22 U/L (7-37); BILIRUBIN,TOTAL 0.5 MG/DL (0.2-1.0); BLOOD UREA NITROGEN 13 MG/DL (7-18); CALCIUM LEVEL 8.5 MG/DL (8.8-10.2); CARBON DIOXIDE LEVEL 28 MEQ/L (21-32); CHLORIDE LEVEL 103 MEQ/L (98-107); CREATININE FOR GFR 0.77 MG/DL (0.55-1.30); FREE T4 1.72 NG/DL (0.76-1.46); GLOMERULAR FILTRATION RATE > 60.0 (>45); GLUCOSE, FASTING 79 MG/DL (70-100); MAGNESIUM LEVEL 1.9 MG/DL (1.8-2.4); NT-PRO BNP 112 PG/ML (<125); POTASSIUM SERUM 4.2 MEQ/L (3.5-5.1); PTH INTACT 70.4 PG/ML (18.5-88.0); SODIUM LEVEL 140 MEQ/L (136-145); THYROID STIMULATING HORMONE 0.415 uIU/ML (0.358-3.740); TOTAL 25(OH) VITAMIN D 68.9 NG/ML (30.0-100.0); TOTAL PROTEIN 7.3 GM/DL (6.4-8.2)
[2018-05-30 16:02] LABS: ESTIMATED AVERAGE GLUCOSE 143 MG/DL (60-110); HEMOGLOBIN A1c 6.6 %
[2018-05-31 11:46] LABS: ALBUMIN 3.81 GM/DL (3.29-5.55); ALBUMIN % 52.2 % (55.8-66.1); ALPHA-1-GLOBULIN % 5.5 % (2.9-4.9); ALPHA-2-GLOBULINS 0.95 GM/DL (0.42-0.99); BETA-2-GLOBULINS % 7.3 % (3.2-6.5)
[2018-05-31 11:47] LABS: BETA-1-GLOBULINS 0.51 GM/DL (0.28-0.60); BETA-2-GLOBULINS 0.53 GM/DL (0.19-0.55)
[2018-05-31 14:19] LABS: INSULIN LEVEL 13.2 uIU/mL (2.6-24.9)
== END ==
LOC: M SFHCPLAZ 11:34
DX: I50.30 Unspecified diastolic (congestive) heart failure (principal); R73.01 Impaired fasting glucose; E21.3 Hyperparathyroidism, unspecified; E05.21 Thyrotoxicosis with toxic multinodular goiter with thyrotoxic crisis or storm
CPT/HCPCS: 83525

== ENCOUNTER → 2018-07-17 | Outpatient (CLI) | payer MEDICARE, BC, OTHER ==
[~2018-07-17] MED LIST changes: +ASPI81TA85 PO; +CALCTAB74 PO; +DRIS50003 PO; +EXEM25TA PO; +LASI20TA3 PO; -LIDOCAINE 1% MDV 20ML VIAL As Ordered; +LOVE0.8I SC; +MULT1TAB18 PO; +OMEP40CA2 PO; +SILV40CR EXT; +SONA10CA23 PO; +TAPA5TAB PO; +WELLTAB40 PO
--- NOTE | 2018-07-19 08:24 | RADONC ---
RADIATION ONCOLOGY FOLLOWUP NOTE DATE: 07/17/2018 CHART NUMBER: [id number] DIAGNOSIS: Left breast cancer. STAGE: 0, [id number]. ECOG PERFORMANCE STATUS: 0 FOLLOWUP NOTE: Ms. 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 The patient presents today reporting that she is doing quite well with no complaints at this time related to her radiation therapy or disease. She has no breast or bone pain. REVIEW OF SYSTEMS: The patient's review of systems is noncontributory. Denies nausea, vomiting, fevers, chills, night sweats, diplopia, headaches, anxiety or depression, anorexia, weight loss, visual disturbances, chest pain, urinary or bowel difficulties, bone pain, or neurological problems. PHYSICAL EXAMINATION: The patient is a well-developed, well-nourished, 67-year-old white female, in no acute distress. HEENT exam is normocephalic, atraumatic. Extraocular movements are intact. There is no palpable cervical, supraclavicular, infraclavicular, axillary, or inguinal lymphadenopathy present. Lungs are clear to auscultation and percussion. Heart has a regular rate and rhythm. Abdomen is benign with no hepatosplenomegaly, masses, or tenderness. Breast examination reveals no masses or discharge bilaterally. Skeletal examination reveals no tenderness to pressure or percussion of the bony skeleton. Extremities reveal no clubbing, cyanosis, or edema. Neurologic exam is grossly intact, as is the remainder of the physical examination. ASSESSMENT: The patient is clinically DARIA at this time and is being closely followed by Dr. Pinky Gant and her other physicians. In light of this, I have discharged her from our followup except on a p.r.n. basis. cc: MD Felipe Bravo MD
== END ==
LOC: M ONCR 13:02
PROVIDERS: ATTEND Radiology Radiation Oncology
DX: Z85.3 Personal history of malignant neoplasm of breast (principal)

== ENCOUNTER 2018-10-03 13:34 | Emergency (ER) | payer MEDICARE, BC, OTHER ==
[~2018-10-03] VITALS: Ht 167.6 cm; Wt 88.6 kg
[2018-10-03] MEDS ORDERED: ASPI81TA85 PO (13:52)
[2018-10-03] MEDS ORDERED: LEVO125T4 (13:52)
--- NOTE | 2018-10-03 14:25 | REP ---
Clinical: Right elbow pain. Technique: AP, lateral, bilateral oblique views of the right elbow. Findings: Generalized age-related changes are appreciated. There is no evidence for acute fracture dislocation. Anterior and posterior fat pads are in satisfactory normal position. No subcutaneous emphysema or radiodense foreign body. Impression: No obvious acute fracture dislocation. Electronically Signed by Aaron Miller MD 10/03/2018 02:17 P
[2018-10-03 15:09] LABS: HEMATOCRIT 45.2 % (36.0-47.0); HEMOGLOBIN 14.4 g/dl (12.0-15.5); MEAN CORPUSCULAR HEMOGLOBIN 28.1 pg (27.0-33.0); MEAN CORPUSCULAR HGB CONC 31.9 g/dl (32.0-36.5); MEAN CORPUSCULAR VOLUME 88.1 fl (80.0-96.0); PLATELET COUNT, AUTOMATED 246 10^3/uL (150-450); RED BLOOD COUNT 5.13 10^6/uL (4.00-5.40); WHITE BLOOD COUNT 7.4 10^3/uL (4.0-10.0)
[2018-10-03] MEDS ORDERED: VOLT1GEL15 TOP (15:15)
[2018-10-03 16:02] VITALS: BP 140/72
[2018-10-11] MEDS ORDERED: CALCD50TA PO (09:03)
[2018-10-11] MEDS ORDERED: MULTCAP PO (09:03)
== END 2018-10-03 16:03 | disposition home or self-care (01) ==
LOC: M ED 13:34
DX: S50.11XA Contusion of right forearm, initial encounter (principal); W00.0XXA Fall on same level due to ice and snow, initial encounter; Y92.018 Other place in single-family (private) house as the place of occurrence of the external cause; K21.9 Gastro-esophageal reflux disease without esophagitis; Z79.899 Other long term (current) drug therapy; Z79.82 Long term (current) use of aspirin; Z79.890 Hormone replacement therapy

== ENCOUNTER → 2018-11-11 | Outpatient (REF) | payer MEDICARE, OTHER ==
[~2018-11-11] MED LIST changes: +CALCD50TA PO; +LEVO125T4; +MULTCAP PO; +VOLT1GEL15 TOP
[2018-11-11 13:27] LABS: BASO % 0.5 % (0.0-1.0); EOS # 0.2 10^3/uL (0.0-0.50); EOS % 2.7 % (0.0-3.0); HEMATOCRIT 46.2 % (36.0-47.0); HEMOGLOBIN 14.5 g/dl (12.0-15.5); LYMPH # 1.4 10^3/uL (1.5-4.5); LYMPH % 18.9 % (24.0-44.0); MEAN CORPUSCULAR HEMOGLOBIN 28.5 pg (27.0-33.0); MEAN CORPUSCULAR HGB CONC 31.4 g/dl (32.0-36.5); MEAN CORPUSCULAR VOLUME 90.9 fl (80.0-96.0); MONO # 0.9 10^3/uL (0.0-0.8); MONO % 11.5 % (0.0-5.0); NEUTROPHILS # 4.9 10^3/uL (1.8-7.7); NEUTROPHILS % 65.7 % (36.0-66.0); PLATELET COUNT, AUTOMATED 300 10^3/uL (150-450); RED BLOOD COUNT 5.08 10^6/uL (4.00-5.40); WHITE BLOOD COUNT 7.4 10^3/uL (4.0-10.0)
[2018-11-11 13:44] LABS: ALBUMIN 4.1 GM/DL (3.2-5.2); BILIRUBIN,TOTAL 0.4 MG/DL (0.2-1.0); CALCIUM LEVEL 9.2 MG/DL (8.8-10.2); CREATININE FOR GFR 0.98 MG/DL (0.55-1.30); FREE T4 1.21 NG/DL (0.76-1.46); GLOMERULAR FILTRATION RATE 59.9 (>45); POTASSIUM SERUM 4.3 MEQ/L (3.5-5.1); THYROID STIMULATING HORMONE 1.39 uIU/ML (0.358-3.740); TOTAL PROTEIN 7.7 GM/DL (6.4-8.2)
[2018-11-11 13:56] LABS: APPEARANCE, URINE CLEAR (CLEAR); BACTERIA, URINE AUTO NEGATIVE (NEGATIVE); BILIRUBIN, URINE AUTO NEGATIVE (NEGATIVE); BLOOD, URINE BLOOD NEGATIVE (NEGATIVE); COLOR, URINE STRAW (YELLOW); GLUCOSE, URINE (UA) AUTO NEGATIVE (NEGATIVE); KETONE, URINE AUTO NEGATIVE (NEGATIVE); LEUKOCYTE ESTERASE, URINE AUTO 1+ (NEGATIVE); NITRITE, URINE AUTO NEGATIVE (NEGATIVE); PROTEIN, URINE AUTO NEGATIVE (NEGATIVE); RBC, URINE AUTO 1 /HPF (0-3); SPECIFIC GRAVITY URINE AUTO 1.005 (1.002-1.035); SQUAMOUS EPITHELIAL CELL UR AU 0 /HPF (0-6); UROBILINOGEN, URINE AUTO 0.2 mg/dL (0.0-2.0); WBC, URINE AUTO 1 /HPF (0-3)
[2018-11-11 14:10] LABS: HEMOGLOBIN A1c 6.7 %
[2018-11-11 14:21] LABS: CREATININE, URINE < 13.0 MG/DL; MALB URINE SIEMENS 5.7 MG/L
== END ==
LOC: M SFHCPLAZ 11:07
PROVIDERS: ATTEND Family Medicine
DX: D50.9 Iron deficiency anemia, unspecified (principal); R73.01 Impaired fasting glucose; E89.0 Postprocedural hypothyroidism; I50.30 Unspecified diastolic (congestive) heart failure
CPT/HCPCS: 36415; 80053; 81001; 82043; 83036; 83880; 84439; 84443; 85025; 85046; G0463

== ENCOUNTER → 2019-07-08 | Outpatient (CLI) | payer MEDICARE, BC ==
[~2019-07-08] MED LIST changes: -OMEP40CA2 PO; +OMEP40CA97 PO
--- NOTE | 2019-07-10 13:28 | DEXA ---
AP SPINE L1 - L4 1.045 -1.2 0.5 LT FEMUR TOTAL 0.900 -0.9 0.6 LT NECK 0.830 -1.5 0.2 RT FEMUR TOTAL 0.834 -1.4 0.1 RT NECK 0.774 -1.9 -0.2 TOTAL BODY TOTAL OTHER COMMENTS: There is low bone density of the spine and hips. The density of the spine is decreased 7.8% since the initial exam on 05/02/2002. The spine density has decreased 5.3% since the most recent exam on 07/03/2017. The density of the left hip has decreased 0.4% since the initial exam on 05/02/2002. The density of the left hip has increased 4.2% since the most recent exam on 07/03/2017. The density of the right hip has decreased 1.4% since the initial exam on 12/14/2006. The density of the right hip has decreased 2.1% since the most recent exam on 07/03/2017. FOLLOW-UP: Recommendation for the next bone density exam: 2 years. MARK
== END ==
LOC: M WHC 11:22
PROVIDERS: ATTEND Internal Medicine Medical Oncology
DX: M85.88 Other specified disorders of bone density and structure, other site (principal)

== ENCOUNTER 2019-08-27 06:59 | Day surgery (SDC) | payer MEDICARE, BC, OTHER ==
[~2019-08-27] VITALS: Ht 165.1 cm; Wt 88.3 kg
[~2019-08-27 06:59] MED LIST changes: +METF-791 PO; +NS 1,000 ML IV SCH; +SERT-141 PO; +TELM1TAB33 PO; +VITA50005 PO
[2019-08-27] MEDS ORDERED: propofoL 200 MG/20 ML VIAL As Ordered ONE (07:50)
[2019-08-27] MEDS ORDERED: LIDOCAINE 2% INJ 100 MG/5 ML SDV (FOR ANES.) As Ordered ONE (07:50)
[2019-08-27] MEDS ORDERED: PHENYLephrine HCL 500 MCG/5 ML (100MCG/ML) SYRINGE (J2370) As Ordered ONE (07:51)
[2019-08-27] MEDS ORDERED: fentaNYL 100 MCG/2 ML INJECTION (J3010) As Ordered ONE (07:59)
--- NOTE | 2019-08-27 08:45 | ROOR ---
Patient Name: Elsa Curry Procedure Date: 08/27/2019 8:24 AM Date of : 1950 Age: 68 Room: [facility] Gender: Female Note Status: Finalized Procedure: Upper Endoscopy + Biopsies Indications: Heartburn, Exclusion of Hewitt's esophagus Providers: Roman Carlson MD Referring MD: Felipe Castro MD Requesting Provider: Medicines: Monitored Anesthesia Care Complications: No immediate complications. Procedure: Pre-Anesthesia Assessment: - The heart rate, respiratory rate, oxygen saturations, blood pressure, adequacy of pulmonary ventilation, and response to care were monitored throughout the procedure. The Endoscope was introduced through the mouth, and advanced to the second part of duodenum. The upper GI endoscopy was accomplished without difficulty. The patient tolerated the procedure well. Findings: The Z-line was variable and was found 30 cm from the incisors. Multiple biopsies were obtained with cold forceps for evaluation to rule out Hewitt's Esophagus randomly at the gastroesophageal junction. A large hiatal hernia was present. No other significant abnormalities were identified in a careful examination of the stomach. The exam of the duodenum was otherwise normal. Impression: - Z-line variable, 30 cm from the incisors. - Large hiatal hernia. - Multiple biopsies were obtained at the gastroesophageal junction. - The examination was otherwise normal. Recommendation: - Patient has a contact number available for emergencies. The signs and symptoms of potential delayed complications were discussed with the patient. Return to normal activities tomorrow. Written discharge instructions were provided to the patient. - High fiber diet. - Discharge patient to home. - Follow an antireflux regimen. - Continue present medications. - Await pathology results. - Telephone GI clinic for pathology results in 1 week. - Return to referring physician. - The findings and recommendations were discussed with the patient's family. Roman Carlson MD Roman Carlson MD 08/27/2019 8:44:36 AM Electronically signed by Roman Carlson MD Number of Addenda: 0 Note Initiated On: 08/27/2019 8:24 AM Estimated Blood Loss: Estimated blood loss: none.
--- NOTE | 2019-08-27 09:03 | ROOR ---
Patient Name: Elsa Curry Procedure Date: 08/27/2019 8:25 AM Date of : 1950 Age: 68 Room: [facility] Gender: Female Note Status: Finalized Procedure: Total Colonoscopy to Cecum + Biopsy Polypectomy Indications: Colon cancer screening in patient at increased risk: Colorectal cancer in father Providers: Roman Carlson MD Referring MD: Felipe Castro MD Requesting Provider: Medicines: Monitored Anesthesia Care Complications: No immediate complications. Procedure: Pre-Anesthesia Assessment: - The heart rate, respiratory rate, oxygen saturations, blood pressure, adequacy of pulmonary ventilation, and response to care were monitored throughout the procedure. The Colonoscope was introduced through the anus and advanced to the cecum, identified by appendiceal orifice and ileocecal valve. The colonoscopy was performed without difficulty. The patient tolerated the procedure well. The quality of the bowel preparation was excellent. Findings: The perianal and digital rectal examinations were normal. Non-bleeding internal hemorrhoids were found during retroflexion. The hemorrhoids were small and Grade I (internal hemorrhoids that do not prolapse). Scattered small-mouthed diverticula were found in the recto-sigmoid colon, sigmoid colon and descending colon. Multiple sessile polyps were found at 20 cm proximal to the anus. The polyps were diminutive in size. These polyps were removed with a cold biopsy forceps. Resection and retrieval were complete. The exam was otherwise without abnormality on direct and retroflexion views. Impression: - Non-bleeding internal hemorrhoids. - Diverticulosis in the recto-sigmoid colon, in the sigmoid colon and in the descending colon. - Multiple diminutive polyps at 20 cm proximal to the anus, removed with a cold biopsy forceps. Resected and retrieved. - The examination was otherwise normal on direct and retroflexion views. - The exam was otherwise normal to the cecum. Recommendation: - Patient has a contact number available for emergencies. The signs and symptoms of potential delayed complications were discussed with the patient. Return to normal activities tomorrow. Written discharge instructions were provided to the patient. - High fiber diet. - Discharge patient to home. - Continue present medications. - Await pathology results. - Telephone GI clinic for pathology results in 1 week. - Repeat colonoscopy in 5 years for surveillance. - Return to referring physician. - The findings and recommendations were discussed with the patient's family. Roman Carlson MD Roman Carlson MD 08/27/2019 9:03:25 AM Electronically signed by Roman Carlson MD Number of Addenda: 0 Note Initiated On: 08/27/2019 8:25 AM Estimated Blood Loss: Estimated blood loss: none.
[2019-08-27 09:30] VITALS: BP 118/59
== END 2019-08-27 09:29 | disposition home or self-care (01) ==
LOC: M OPP 06:59
PROVIDERS: ATTEND Internal Medicine Gastroenterology
DX: Z12.11 Encounter for screening for malignant neoplasm of colon (principal); Z80.0 Family history of malignant neoplasm of digestive organs; K64.0 First degree hemorrhoids; K63.5 Polyp of colon; K57.30 Diverticulosis of large intestine without perforation or abscess without bleeding; K22.8 Other specified diseases of esophagus; K44.9 Diaphragmatic hernia without obstruction or gangrene; R12 Heartburn; Z79.82 Long term (current) use of aspirin; Z79.84 Long term (current) use of oral hypoglycemic drugs; Z79.899 Other long term (current) drug therapy; Z87.891 Personal history of nicotine dependence
CPT/HCPCS: 43239; 45380; 88305; J2370; J3010

== ENCOUNTER → 2019-10-16 | Outpatient (REF) | payer MEDICARE, OTHER ==
[~2019-10-16] MED LIST changes: -NS 1,000 ML IV SCH
[2019-10-16 12:42] LABS: BASO # 0.1 10^3/uL (0.0-0.2); BASO % 0.8 % (0.0-1.0); EOS # 0.3 10^3/uL (0.0-0.5); EOS % 3.7 % (0.0-3.0); HEMOGLOBIN 14.6 g/dl (12.0-15.5); LYMPH # 1.4 10^3/uL (1.5-5.0); LYMPH % 17.5 % (24.0-44.0); MEAN CORPUSCULAR HEMOGLOBIN 28.2 pg (27.0-33.0); MEAN CORPUSCULAR HGB CONC 31.7 g/dl (32.0-36.5); MONO % 12.7 % (0.0-5.0); NEUTROPHILS % 64.5 % (36.0-66.0); PLATELET COUNT, AUTOMATED 278 10^3/uL (150-450); RED BLOOD COUNT 5.17 10^6/uL (4.00-5.40); WHITE BLOOD COUNT 7.8 10^3/uL (4.0-10.0)
[2019-10-16 12:47] LABS: APPEARANCE, URINE CLEAR (CLEAR); BACTERIA, URINE AUTO NEGATIVE (NEGATIVE); BILIRUBIN, URINE AUTO NEGATIVE (NEGATIVE); BLOOD, URINE BLOOD NEGATIVE (NEGATIVE); COLOR, URINE AMBER (YELLOW); GLUCOSE, URINE (UA) AUTO NEGATIVE (NEGATIVE); KETONE, URINE AUTO NEGATIVE (NEGATIVE); LEUKOCYTE ESTERASE, URINE AUTO TRACE (NEGATIVE); MUCUS, URINE SMALL (NEGATIVE); NITRITE, URINE AUTO NEGATIVE (NEGATIVE); PROTEIN, URINE AUTO NEGATIVE (NEGATIVE); RBC, URINE AUTO 3 /HPF (0-3); SQUAMOUS EPITHELIAL CELL UR AU 0 /HPF (0-6); WBC, URINE AUTO 1 /HPF (0-3)
[2019-10-16 12:50] LABS: PTH INTACT 85.5 PG/ML (18.5-88.0); TOTAL 25(OH) VITAMIN D 58.9 NG/ML (30.0-100.0)
[2019-10-16 13:14] LABS: ALBUMIN 3.8 GM/DL (3.2-5.2); ALT/SGPT 27 U/L (12-78); BILIRUBIN,TOTAL 0.4 MG/DL (0.2-1.0); BLOOD UREA NITROGEN 14 MG/DL (7-18); CALCIUM LEVEL 9.3 MG/DL (8.8-10.2); CARBON DIOXIDE LEVEL 31 MEQ/L (21-32); CHLORIDE LEVEL 104 MEQ/L (98-107); CHOLESTEROL LEVEL 214 MG/DL (<200); CHOLESTEROL RISK RATIO 6.114 (<5); CREATININE FOR GFR 0.84 MG/DL (0.55-1.30); FREE T4 1.28 NG/DL (0.76-1.46); GLOMERULAR FILTRATION RATE > 60.0 (>45); GLUCOSE, FASTING 114 MG/DL (70-100); HDL CHOLESTEROL 35 MG/DL (>40); LDL CHOLESTEROL 154 MG/DL (<100); NON-HDL-C 179 MG/DL; POTASSIUM SERUM 4.4 MEQ/L (3.5-5.1); SODIUM LEVEL 138 MEQ/L (136-145); THYROID STIMULATING HORMONE 0.728 uIU/ML (0.358-3.740); TOTAL PROTEIN 7.9 GM/DL (6.4-8.2); TRIGLYCERIDES LEVEL 126 MG/DL (<150)
[2019-10-17 09:02] LABS: CA 125 24.2 U/ML (<30.2)
== END ==
LOC: M SFHCPLAZ 09:19
PROVIDERS: ATTEND Family Medicine
DX: R73.01 Impaired fasting glucose (principal); K22.70 Barrett's esophagus without dysplasia; Z15.09 Genetic susceptibility to other malignant neoplasm; E55.9 Vitamin D deficiency, unspecified; E21.3 Hyperparathyroidism, unspecified; Z79.899 Other long term (current) drug therapy
CPT/HCPCS: 36415; 80053; 80061; 81001; 82306; 83036; 83970; 84439; 84443; 85025; 86304; 88108; G0463

== ENCOUNTER → 2019-10-27 | Outpatient (CLI) | payer MEDICARE, BC, OTHER ==
--- NOTE | 2019-10-27 11:02 | REP ---
REASON: History of Lim syndrome. COMPARISON: 10/30/2006, which showed fatty infiltration of the liver. Multiple ultrasonographic images of the liver again show diffuse increased echoes throughout the hepatic parenchyma, but without evidence of a mass or ductal dilatation. The common bile duct measures between 3 and 4 mm. Multiple sonographic images of the gallbladder show no evidence of abnormal gallbladder wall thickening or pericholecystic edema. Multiple mobile echogenic foci are seen within the gallbladder lumen, which cast acoustic shadows. The imaged portion of the pancreas is within normal limits. The right kidney measures 12.1 x 5 x 4.4 cm and the left kidney measures 11.4 x 3.9 x 5.1 cm. The renal cortical echoes are mildly increased, but corticomedullary differentiation is well preserved. The renal cortex is thinned bilaterally. This represents a change from the prior exam. No cystic or solid masses are noted. The spleen has a maximal dimension of 10.6 cm. No splenic or perisplenic abnormality is noted. Tiny echogenic foci are seen throughout the spleen, consistent with chronic calcified granulomatous changes. There is no free fluid in the abdomen. The technologist has indicated on the worksheet that the examination was somewhat limited due to the patient body habitus and intestinal gas pattern. IMPRESSION: 1. Cholelithiasis. 2. Diffuse fatty infiltration of the liver. 3. Bilateral renal cortical thinning with slightly increased echoes. Followup is suggested. 4. Incidental splenic granulomatous changes. 5. Other findings as described above. Electronically Signed by Ramiro Aguilar DO 10/27/2019 02:00 P
== END ==
LOC: M RAD 08:15
PROVIDERS: ATTEND Family Medicine
DX: Z15.09 Genetic susceptibility to other malignant neoplasm (principal)

== ENCOUNTER → 2020-09-20 | Outpatient (CLI) | payer MEDICARE, BC, OTHER ==
[~2020-09-20] MED LIST changes: -ASPI81TA85 PO; +ASPI81TA86 PO; +ECOT81TA5 PO; -LEVO125T4; +LEVO125T4 PO; -METF-791 PO; +METF-838 PO; +NAPR-837 PO
[2020-09-20 13:50] LABS: BASO % 0.5 % (0.0-1.0); EOS # 0.3 10^3/uL (0.0-0.5); EOS % 3.9 % (0.0-3.0); HEMATOCRIT 41.7 % (36.0-47.0); HEMOGLOBIN 12.9 g/dl (12.0-15.5); LYMPH # 1.5 10^3/uL (1.5-5.0); LYMPH % 18.3 % (24.0-44.0); MEAN CORPUSCULAR HEMOGLOBIN 27.9 pg (27.0-33.0); MEAN CORPUSCULAR HGB CONC 30.9 g/dl (32.0-36.5); MEAN CORPUSCULAR VOLUME 90.3 fl (80.0-96.0); MONO # 0.9 10^3/uL (0.0-0.8); MONO % 10.8 % (2.0-8.0); NEUTROPHILS # 5.2 10^3/uL (1.5-8.5); NEUTROPHILS % 65.5 % (36.0-66.0); PLATELET COUNT, AUTOMATED 273 10^3/uL (150-450); RED BLOOD COUNT 4.62 10^6/uL (4.00-5.40); WHITE BLOOD COUNT 7.9 10^3/uL (4.0-10.0)
[2020-09-20 15:28] LABS: ALBUMIN 3.8 GM/DL (3.2-5.2); ALT/SGPT 26 U/L (12-78); BILIRUBIN,TOTAL 0.4 MG/DL (0.2-1.0); BLOOD UREA NITROGEN 21 MG/DL (7-18); CALCIUM LEVEL 9.1 MG/DL (8.8-10.2); CARBON DIOXIDE LEVEL 31 MEQ/L (21-32); CHLORIDE LEVEL 105 MEQ/L (98-107); CHOLESTEROL LEVEL 128 MG/DL (<200); CHOLESTEROL RISK RATIO 3.368 (<5); CREATININE FOR GFR 0.82 MG/DL (0.55-1.30); FERRITIN 65 NG/ML (8-252); GLOMERULAR FILTRATION RATE > 60.0 (>39); GLUCOSE, FASTING 94 MG/DL (70-100); HDL CHOLESTEROL 38 MG/DL (>40); LDL CHOLESTEROL 66 MG/DL (<100); NON-HDL-C 90 MG/DL; POTASSIUM SERUM 3.9 MEQ/L (3.5-5.1); SODIUM LEVEL 140 MEQ/L (136-145); TOTAL PROTEIN 7.1 GM/DL (6.4-8.2); TRIGLYCERIDES LEVEL 120 MG/DL (<150)
[2020-09-20 15:29] LABS: PTH INTACT 42.4 PG/ML (18.5-88.0); TOTAL 25(OH) VITAMIN D 61.2 NG/ML (30.0-100.0)
[2020-09-20 15:43] LABS: HEMOGLOBIN A1c 6.7 %
[2020-09-21 09:09] LABS: H PYLORI SERUM QUANT IgG ABY 0.35 (0.00-0.79); INSULIN LEVEL 25.4 uIU/mL (2.6-24.9)
== END ==
LOC: M WUC 10:55
PROVIDERS: ATTEND Family Medicine
DX: R73.01 Impaired fasting glucose (principal); E55.9 Vitamin D deficiency, unspecified; D50.9 Iron deficiency anemia, unspecified; M17.11 Unilateral primary osteoarthritis, right knee; Z79.899 Other long term (current) drug therapy

== ENCOUNTER → 2021-02-09 | Outpatient (CLI) | payer MEDICARE, BC, OTHER ==
[~2021-02-09] MED LIST changes: +ERGO500029 PO; +OMEP40CA4 PO; -OMEP40CA97 PO; -VITA50005 PO
--- NOTE | 2021-02-09 08:50 | REP ---
INDICATION: VALLEJO SYNDROME. COMPARISON: None. TECHNIQUE: Transabdominal ultrasound FINDINGS: Multiple ultrasonographic images of the liver show the hepatic parenchymal echo pattern to be diffusely increased status quo. There is no intrahepatic or extrahepatic ductal dilatation. The common bile duct measures 3.6 mm. Multiple ultrasonographic images of the gallbladder show echogenic foci within the gallbladder lumen which cast acoustic shadows status quo.. The imaged portion of the pancreas is within normal limits. The spleen measures 10.1 x 9.7 x5.5 cm. No splenic or perisplenic abnormalities are noted. The right kidney measures 10.2 x 5.3 x 5.2 cm. The renal cortical echotexture is slightly increased. There is renal cortical thinning status quo. Corticomedullary differentiation is preserved. There is no hydronephrosis. There are no masses. The left kidney measures 11.3 x 5 x 5.1 cm. The renal cortical echotexture is slightly increased. There is renal cortical thinning status quo. Corticomedullary differentiation is preserved. There is no hydronephrosis. There are no masses. In the inferior pole of the left kidney there is a 1.8 x 1.7 x 2.1 cm sized nearly anechoic structure which does not exhibit posterior wall enhancement or increased through transmission. This was not present on the prior exam. The imaged portion of the abdominal aorta is within normal limits. There is no evidence of free fluid. IMPRESSION: 1. There is fatty infiltration of the liver status quo. 2. Chronic renal cortical thinning status quo. 3. Probable simple right renal cyst, however, pre and post contrast-enhanced renal CT is recommended. 4. Other findings as described above. <Electronically signed by Ramiro Aguilar > 02/09/21 [id number]
== END ==
LOC: M RAD 07:50
PROVIDERS: ATTEND Family Medicine
DX: K76.0 Fatty (change of) liver, not elsewhere classified (principal); Z15.09 Genetic susceptibility to other malignant neoplasm

== ENCOUNTER → 2021-02-14 | Outpatient (CLI) | payer MEDICARE, BC, OTHER ==
[~2021-02-14] MED LIST changes: +ISOVUE-370 76% 100ML VIAL As Ordered ONE
--- NOTE | 2021-02-14 10:52 | REP ---
INDICATION: RENAL CYST. Lim syndrome. There is a history of breast carcinoma. COMPARISON: Comparison abdominal sonography 09 February 2021 showed a probable simple right renal cyst. Comparison is made with imaging from chest CT September 13, 2016.. TECHNIQUE: Pre and post-contrast abdominal CT study is acquired. 3 mm axial images re-formatted. Coronal and sagittal MPR images are provided. Dual phase post-contrast imaging is performed. The contrast enhancement dose was 100 mL of intravenous Isovue 370. FINDINGS: The preliminary digital icicle machine operator radiograph shows an unremarkable bowel gas pattern. The lung bases are clear on axial CT images. There are granulomatous calcifications scattered throughout the spleen. There is a large peripherally calcified gallstone in the lumen of the gallbladder. The gallstone measures 2.1 cm in greatest diameter. No wall thickening or biliary ductal dilation is observed. No focal liver lesion is seen. Normal adrenal glands are observed. No abnormality is noted in the pancreas. There appears to be a descending duodenal diverticulum. There is no evidence of hydronephrosis on either side. There is a cyst projecting from the lower pole of the left kidney measuring 2.1 cm in greatest diameter. This shows no evidence of contrast enhancement or soft tissue nodular component. No wall thickening is seen. Delayed post contrast enhanced images demonstrate a tiny subcentimeter cortical cyst in the left mid kidney as well. No hydronephrosis or collecting system filling defect is seen on delayed acquisition. No retroperitoneal mass or adenopathy is seen. Small and large bowel loops are unremarkable in the abdomen. No bony destructive lesion. There is a mild 3 mm degenerative L4-5 spondylolisthesis. 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 Simple cyst in the lower pole left kidney. Cholelithiasis. <Electronically signed by Abel Jeffries > 02/14/21 [id number]
== END ==
LOC: M RAD 09:10
PROVIDERS: ATTEND Family Medicine
DX: N28.1 Cyst of kidney, acquired (principal); N20.0 Calculus of kidney; D73.89 Other diseases of spleen; Z15.09 Genetic susceptibility to other malignant neoplasm; Z85.3 Personal history of malignant neoplasm of breast
CPT/HCPCS: 74170; Q9967

== ENCOUNTER → 2021-09-01 | Outpatient (CLI) | payer MEDICARE, OTHER, BC ==
[~2021-09-01] MED LIST changes: +CALC-234 PO; -ISOVUE-370 76% 100ML VIAL As Ordered ONE; +MULT-90 PO
[2021-09-01 16:52] LABS: CREATININE, URINE 43.4 MG/DL; MALB URINE SIEMENS 11.7 MG/L; MAU/CREAT RATIO 26.9 MCG/MG (0.0-30.0)
[2021-09-01 18:42] LABS: ALBUMIN 3.9 GM/DL (3.2-5.2); BILIRUBIN,TOTAL 0.4 MG/DL (0.2-1.0); C REACTIVE PROTEIN QUANTITATIV 0.44 MG/DL (0.00-0.30); CALCIUM LEVEL 9.5 MG/DL (8.8-10.2); CREATININE FOR GFR 1.28 MG/DL (0.55-1.30); FREE T4 1.22 NG/DL (0.76-1.46); GLOMERULAR FILTRATION RATE 43.8 (>39); MAGNESIUM LEVEL 1.8 MG/DL (1.8-2.4); POTASSIUM SERUM 4.2 MEQ/L (3.5-5.1); PTH INTACT 54.7 PG/ML (18.5-88.0); THYROID STIMULATING HORMONE 0.15 uIU/ML (0.358-3.740); TOTAL 25(OH) VITAMIN D 58.4 NG/ML (30.0-100.0)
== END ==
LOC: M WUC 14:28
PROVIDERS: ATTEND Family Medicine
DX: I50.30 Unspecified diastolic (congestive) heart failure (principal); R73.01 Impaired fasting glucose; E78.2 Mixed hyperlipidemia; E55.9 Vitamin D deficiency, unspecified

== ENCOUNTER → 2021-11-02 | Outpatient (CLI) | payer MEDICARE, BC, OTHER | LOC: M WHC 08:21 | PROVIDERS: ATTEND Family Medicine | DX: Z15.09 Genetic susceptibility to other malignant neoplasm (principal) ==

== ENCOUNTER → 2021-11-23 | Outpatient (CLI) | payer MEDICARE, BC, OTHER | LOC: M WHC 10:19 | PROVIDERS: ATTEND Internal Medicine Hematology & Oncology | DX: M81.0 Age-related osteoporosis without current pathological fracture (principal) ==

== ENCOUNTER → 2022-01-13 | Outpatient (CLI) | payer MEDICARE, OTHER, BC ==
[2022-01-13 09:39] LABS: BASO % 0.3 % (0.0-1.0); EOS # 0.2 10^3/uL (0.0-0.5); EOS % 2.4 % (0.0-3.0); HEMATOCRIT 40.5 % (36.0-47.0); HEMOGLOBIN 12.9 g/dl (12.0-15.5); LYMPH # 1.5 10^3/uL (1.5-5.0); LYMPH % 15.6 % (24.0-44.0); MEAN CORPUSCULAR HEMOGLOBIN 28.5 pg (27.0-33.0); MEAN CORPUSCULAR HGB CONC 31.9 g/dl (32.0-36.5); MEAN CORPUSCULAR VOLUME 89.4 fl (80.0-96.0); MONO % 10.2 % (2.0-8.0); NEUTROPHILS # 6.8 10^3/uL (1.5-8.5); NEUTROPHILS % 70.9 % (36.0-66.0); PLATELET COUNT, AUTOMATED 239 10^3/uL (150-450); RED BLOOD COUNT 4.53 10^6/uL (4.00-5.40); WHITE BLOOD COUNT 9.6 10^3/uL (4.0-10.0)
[2022-01-13 10:12] LABS: ALBUMIN 3.6 GM/DL (3.2-5.2); ALT/SGPT 21 U/L (12-78); BILIRUBIN,TOTAL 0.5 MG/DL (0.2-1.0); BLOOD UREA NITROGEN 16 MG/DL (7-18); CALCIUM LEVEL 9.4 MG/DL (8.8-10.2); CARBON DIOXIDE LEVEL 31 MEQ/L (21-32); CHLORIDE LEVEL 106 MEQ/L (98-107); CREATININE FOR GFR 0.96 MG/DL (0.55-1.30); FERRITIN 86 NG/ML (8-252); GLOMERULAR FILTRATION RATE > 60.0 (>39); GLUCOSE, FASTING 130 MG/DL (70-100); NT-PRO BNP 130 PG/ML (<125); POTASSIUM SERUM 4.5 MEQ/L (3.5-5.1); SODIUM LEVEL 140 MEQ/L (136-145); TOTAL PROTEIN 7.1 GM/DL (6.4-8.2)
[2022-01-13 10:16] LABS: HEMOGLOBIN A1c 7.1 %
[2022-01-13 10:23] LABS: VITAMIN B12 LEVEL 326 PG/ML (247-911)
== END ==
LOC: M WUC 08:24
PROVIDERS: ATTEND Family Medicine
DX: I50.30 Unspecified diastolic (congestive) heart failure (principal); R73.01 Impaired fasting glucose; D50.9 Iron deficiency anemia, unspecified

== ENCOUNTER → 2022-06-09 | Outpatient (CLI) | payer MEDICARE, BC, OTHER ==
[2022-06-09 17:32] LABS: HEMOGLOBIN A1c 7.8 % (4.0-6.0)
[2022-06-09 17:44] LABS: INR 0.88; PROTHROMBIN TIME 12.1 SECONDS (12.5-14.5)
[2022-06-09 17:45] LABS: PARTIAL THROMBOPLASTIN TIME 25.8 SECONDS (24.8-34.2)
[2022-06-09 17:53] LABS: ALBUMIN 3.9 G/DL (3.2-5.2); ALKALINE PHOSPHATASE 83 U/L (46-116); ALT/SGPT 32 U/L (7.0-40); AST/SGOT 24 U/L (<34); BILIRUBIN,TOTAL 0.4 MG/DL (0.3-1.2); BLOOD UREA NITROGEN 18 MG/DL (9-23); CALCIUM LEVEL 9.3 MG/DL (8.3-10.6); CARBON DIOXIDE LEVEL 33 MMOL/L (20-31); CHLORIDE LEVEL 100 MMOL/L (98-107); CREATININE FOR GFR 0.87 MG/DL (0.55-1.30); CREATININE, URINE 18.7 MG/DL; GLOMERULAR FILTRATION RATE > 60.0 (>39); GLUCOSE, FASTING 128 MG/DL (74-106); MALB URINE SIEMENS < 3.0 MG/DL; POTASSIUM SERUM 4.2 MMOL/L (3.5-5.1); SODIUM LEVEL 140 MMOL/L (136-145); TOTAL PROTEIN 7.5 G/DL (5.7-8.2)
[2022-06-09 17:54] LABS: THYROID STIMULATING HORMONE 0.662 uIU/ML (0.55-4.78)
[2022-06-09 17:55] LABS: FERRITIN 118.6 NG/ML (7.3-270.7); FREE T4 1.46 NG/DL (0.89-1.76)
== END ==
LOC: M WUC 13:31
PROVIDERS: ATTEND Family Medicine
DX: K76.0 Fatty (change of) liver, not elsewhere classified (principal); E11.9 Type 2 diabetes mellitus without complications

== ENCOUNTER → 2023-03-07 | Outpatient (CLI) | payer MEDICARE, BC, OTHER ==
[~2023-03-07] MED LIST changes: +SEMA2PEN SQ
[2023-03-07 13:41] LABS: BASO # 0.1 10^3/uL (0.0-0.2); BASO % 0.6 % (0.0-1.0); EOS # 0.2 10^3/uL (0.0-0.5); EOS % 2.9 % (0.0-3.0); HEMOGLOBIN 13.9 g/dl (12.0-15.5); LYMPH # 1.3 10^3/uL (1.5-5.0); LYMPH % 15.9 % (24.0-44.0); MEAN CORPUSCULAR HEMOGLOBIN 27.6 pg (27.0-33.0); MEAN CORPUSCULAR HGB CONC 30.9 g/dl (32.0-36.5); MEAN CORPUSCULAR VOLUME 89.3 fl (80.0-96.0); MONO % 11.4 % (2.0-8.0); NEUTROPHILS # 5.8 10^3/uL (1.5-8.5); NEUTROPHILS % 68.5 % (36.0-66.0); PLATELET COUNT, AUTOMATED 232 10^3/uL (150-450); RED BLOOD COUNT 5.04 10^6/uL (4.00-5.40); WHITE BLOOD COUNT 8.4 10^3/uL (4.0-10.0)
[2023-03-07 13:55] LABS: HEMOGLOBIN A1c 6.9 % (4.0-6.0)
[2023-03-07 14:00] LABS: BILIRUBIN,TOTAL 0.4 MG/DL (0.3-1.2); CALCIUM LEVEL 9.3 MG/DL (8.3-10.6); CHOLESTEROL RISK RATIO 3.44 (<5); CREATININE FOR GFR 0.98 MG/DL (0.55-1.30); GLOMERULAR FILTRATION RATE 59.2 (>39); POTASSIUM SERUM 4.2 MMOL/L (3.5-5.1); PTH INTACT 75.7 PG/ML (18.5-88.0); TOTAL PROTEIN 7.2 G/DL (5.7-8.2)
[2023-03-07 14:01] LABS: TOTAL 25(OH) VITAMIN D 29.1 NG/ML (20.0-100.0)
[2023-03-07 14:02] LABS: FERRITIN 126.1 NG/ML (7.3-270.7)
== END ==
LOC: M WUC 10:56
PROVIDERS: ATTEND Family Medicine
DX: E11.9 Type 2 diabetes mellitus without complications (principal); E55.9 Vitamin D deficiency, unspecified; I50.30 Unspecified diastolic (congestive) heart failure; D50.9 Iron deficiency anemia, unspecified

== ENCOUNTER → 2023-06-06 | Day surgery (SDC) | payer MEDICARE, BC, OTHER ==
[~2023-06-06] VITALS: Ht 165.1 cm; Wt 85.9 kg
[~2023-06-06] MED LIST changes: +GLYCOPYRROLATE INJ 0.2 MG/ML 2 ML VIAL As Ordered ONE; +LIDOCAINE 2% 100MG/5ML SDV (FOR ANES.) As Ordered ONE; +NS 1,000 ML IV ONE; +propofoL 200 MG/20 ML VIAL As Ordered ONE
[2023-06-06 11:35] VITALS: BP 141/67; O2SAT 94
== END | disposition home or self-care (01) ==
LOC: M OPP 08:27
PROVIDERS: ATTEND Internal Medicine Gastroenterology
DX: Z12.11 Encounter for screening for malignant neoplasm of colon (principal); Z80.0 Family history of malignant neoplasm of digestive organs; D12.6 Benign neoplasm of colon, unspecified; K64.0 First degree hemorrhoids; K57.30 Diverticulosis of large intestine without perforation or abscess without bleeding; K22.89 Other specified disease of esophagus; K44.9 Diaphragmatic hernia without obstruction or gangrene; R12 Heartburn; E11.9 Type 2 diabetes mellitus without complications; Z87.891 Personal history of nicotine dependence; Z79.02 Long term (current) use of antithrombotics/antiplatelets; Z79.1 Long term (current) use of non-steroidal anti-inflammatories (NSAID); Z79.83 Long term (current) use of bisphosphonates; Z79.85 Long-term (current) use of injectable non-insulin antidiabetic drugs; Z79.890 Hormone replacement therapy; Z79.899 Other long term (current) drug therapy

== ENCOUNTER → 2023-10-01 | Outpatient (CLI) | payer MEDICARE, BC, OTHER ==
[~2023-10-01] MED LIST changes: -GLYCOPYRROLATE INJ 0.2 MG/ML 2 ML VIAL As Ordered ONE; -LIDOCAINE 2% 100MG/5ML SDV (FOR ANES.) As Ordered ONE; -NS 1,000 ML IV ONE; -propofoL 200 MG/20 ML VIAL As Ordered ONE
[2023-10-01 12:16] LABS: HEMOGLOBIN A1c 7.4 % (4.0-6.0)
[2023-10-01 12:22] LABS: BASO % 0.5 % (0.0-1.0); EOS # 0.4 10^3/uL (0.0-0.5); EOS % 4.8 % (0.0-3.0); HEMATOCRIT 41.6 % (36.0-47.0); HEMOGLOBIN 12.9 g/dl (12.0-15.5); LYMPH # 1.3 10^3/uL (1.5-5.0); LYMPH % 15.6 % (24.0-44.0); MEAN CORPUSCULAR HEMOGLOBIN 28.2 pg (27.0-33.0); MONO # 0.9 10^3/uL (0.0-0.8); MONO % 10.9 % (2.0-8.0); NEUTROPHILS # 5.7 10^3/uL (1.5-8.5); NEUTROPHILS % 67.1 % (36.0-66.0); PLATELET COUNT, AUTOMATED 260 10^3/uL (150-450); RED BLOOD COUNT 4.57 10^6/uL (4.00-5.40); WHITE BLOOD COUNT 8.5 10^3/uL (4.0-10.0)
[2023-10-01 12:35] LABS: ALBUMIN 3.6 G/DL (3.2-5.2); BILIRUBIN,TOTAL 0.3 MG/DL (0.3-1.2); CALCIUM LEVEL 9.6 MG/DL (8.3-10.6); CREATININE FOR GFR 1.16 MG/DL (0.55-1.30); FERRITIN 230.8 NG/ML (7.3-270.7); GLOMERULAR FILTRATION RATE 48.8 (>39); POTASSIUM SERUM 4.1 MMOL/L (3.5-5.1); TOTAL PROTEIN 6.8 G/DL (5.7-8.2)
== END ==
LOC: M WUC 08:57
PROVIDERS: ATTEND Family Medicine
DX: D50.9 Iron deficiency anemia, unspecified (principal); E11.9 Type 2 diabetes mellitus without complications

== ENCOUNTER → 2023-10-04 | Outpatient (REF) | payer MEDICARE, BC | LOC: M SFHCPLAZ 19:25 | PROVIDERS: ATTEND Family Medicine | DX: E11.9 Type 2 diabetes mellitus without complications (principal); D50.9 Iron deficiency anemia, unspecified; D47.2 Monoclonal gammopathy; E53.8 Deficiency of other specified B group vitamins ==

== ENCOUNTER → 2023-10-05 | Outpatient (REF) | payer MEDICARE, BC | LOC: M SFHCPLAZ 08:55 | PROVIDERS: ATTEND Family Medicine | DX: E11.9 Type 2 diabetes mellitus without complications (principal); D50.9 Iron deficiency anemia, unspecified; D47.2 Monoclonal gammopathy; E53.8 Deficiency of other specified B group vitamins; E89.0 Postprocedural hypothyroidism ==

== ENCOUNTER → 2023-11-05 | Outpatient (CLI) | payer MEDICARE, BC | LOC: M RAD 09:16 | PROVIDERS: ATTEND Family Medicine | DX: E21.3 Hyperparathyroidism, unspecified (principal); K80.20 Calculus of gallbladder without cholecystitis without obstruction; K76.0 Fatty (change of) liver, not elsewhere classified ==

== ENCOUNTER → 2023-11-06 | Outpatient (CLI) | payer MEDICARE, BC ==
[~2023-11-06] MED LIST changes: +PROHANCE 279.3MG/ML 15ML VIAL ONE; +PROHANCE 279.3MG/ML 5ML VIAL ONE
== END ==
LOC: M PLAIMG 08:30
PROVIDERS: ATTEND Family Medicine
DX: R27.0 Ataxia, unspecified (principal)
CPT/HCPCS: 70553; A9576

== ENCOUNTER → 2023-11-27 | Outpatient (CLI) | payer MEDICARE, BC ==
[~2023-11-27] MED LIST changes: -PROHANCE 279.3MG/ML 15ML VIAL ONE; -PROHANCE 279.3MG/ML 5ML VIAL ONE
== END ==
LOC: M WHC 10:50
PROVIDERS: ATTEND Nurse Practitioner
DX: M81.0 Age-related osteoporosis without current pathological fracture (principal); C50.919 Malignant neoplasm of unspecified site of unspecified female breast; Z79.811 Long term (current) use of aromatase inhibitors

== ENCOUNTER → 2024-02-11 | Outpatient (REF) | payer MEDICARE, BC | LOC: M SFHCPLAZ 13:47 | PROVIDERS: ATTEND Family Medicine | DX: E11.9 Type 2 diabetes mellitus without complications (principal); D50.9 Iron deficiency anemia, unspecified; D47.2 Monoclonal gammopathy; E53.8 Deficiency of other specified B group vitamins; E89.0 Postprocedural hypothyroidism ==

== ENCOUNTER → 2024-06-11 | Outpatient (CLI) | payer MEDICARE, BC ==
[2024-06-11 18:27] LABS: BASO % 0.5 % (0.0-1.0); EOS # 0.2 10^3/uL (0.0-0.5); EOS % 2.8 % (0.0-3.0); HEMATOCRIT 42.6 % (36.0-47.0); HEMOGLOBIN 13.4 g/dl (12.0-15.5); LYMPH # 1.4 10^3/uL (1.5-5.0); LYMPH % 17.7 % (24.0-44.0); MEAN CORPUSCULAR HEMOGLOBIN 29.1 pg (27.0-33.0); MEAN CORPUSCULAR HGB CONC 31.5 g/dl (32.0-36.5); MEAN CORPUSCULAR VOLUME 92.6 fl (80.0-96.0); MONO # 0.9 10^3/uL (0.0-0.8); MONO % 11.8 % (2.0-8.0); NEUTROPHILS # 5.1 10^3/uL (1.5-8.5); NEUTROPHILS % 66.5 % (36.0-66.0); PLATELET COUNT, AUTOMATED 224 10^3/uL (150-450); WHITE BLOOD COUNT 7.6 10^3/uL (4.0-10.0)
[2024-06-11 18:32] LABS: ALBUMIN 3.8 G/DL (3.2-5.2); ALKALINE PHOSPHATASE 83 U/L (35-104); ALT/SGPT 25 U/L (7.0-40); AST/SGOT 21 U/L (<34); BILIRUBIN,TOTAL 0.5 MG/DL (0.3-1.2); BLOOD UREA NITROGEN 16 MG/DL (9-23); CALCIUM LEVEL 10.7 MG/DL (8.3-10.6); CARBON DIOXIDE LEVEL 32 MMOL/L (20-31); CHLORIDE LEVEL 102 MMOL/L (98-107); CREATININE FOR GFR 1.05 MG/DL (0.55-1.30); GLOMERULAR FILTRATION RATE 54.5 (>39); GLUCOSE, FASTING 170 MG/DL (74-106); IMMUNOGLOBULIN A 309.3 MG/DL (40-350); IMMUNOGLOBULIN G 1010 MG/DL (650-1600); POTASSIUM SERUM 4.4 MMOL/L (3.5-5.1); SODIUM LEVEL 142 MMOL/L (136-145); TOTAL PROTEIN 7.4 G/DL (5.7-8.2)
[2024-06-11 18:34] LABS: FREE T4 1.37 NG/DL (0.89-1.76); THYROID STIMULATING HORMONE 2.445 uIU/ML (0.55-4.78); VITAMIN B12 LEVEL 533 PG/ML (211-911)
[2024-06-11 18:55] LABS: HEMOGLOBIN A1c 9.2 % (4.0-6.0)
[2024-06-11 19:38] LABS: HEMATOCRIT 42.6 % (36.0-47.0)
[2024-06-13 07:48] LABS: PROTEIN, TOTAL SO 7.1 g/dL (6.1-8.1)
[2024-06-16 07:37] LABS: ALBUMIN SO 4.2 g/dL (3.8-4.8); ALPHA 1 GLOBULINS SO 0.3 g/dL (0.2-0.3); ALPHA 2 GLOBULINS SO 0.7 g/dL (0.5-0.9); BETA 2 GLOBULIN SO 0.5 g/dL (0.2-0.5); BETA GLOBULIN SO 0.5 g/dL (0.4-0.6); GAMMA GLOBULINS SO 0.9 g/dL (0.8-1.7)
== END ==
LOC: M WUC 10:43
PROVIDERS: ATTEND Family Medicine
DX: D50.9 Iron deficiency anemia, unspecified (principal); E11.9 Type 2 diabetes mellitus without complications; E89.0 Postprocedural hypothyroidism; D47.2 Monoclonal gammopathy; E53.8 Deficiency of other specified B group vitamins

== ENCOUNTER → 2024-09-15 | Outpatient (REF) | payer MEDICARE, BC ==
[~2024-09-15] MED LIST changes: +ASPI81CH33 PO; +BASA100I SQ; +D200CAP3 PO; +DICL100G10 TOP; +METF850T4 PO; +ROSU10TA61 PO; +ZOLO100T PO
== END ==
LOC: M SFHCPLAZ 15:59
PROVIDERS: ATTEND Family Medicine
DX: E11.9 Type 2 diabetes mellitus without complications (principal); D50.9 Iron deficiency anemia, unspecified; E53.8 Deficiency of other specified B group vitamins; E89.0 Postprocedural hypothyroidism; I50.32 Chronic diastolic (congestive) heart failure; D47.2 Monoclonal gammopathy

== ENCOUNTER → 2024-09-16 | Outpatient (CLI) | payer MEDICARE, BC ==
[2024-09-16 12:56] LABS: BASO # 0.1 10^3/uL (0.0-0.2); BASO % 0.6 % (0.0-1.0); EOS # 0.2 10^3/uL (0.0-0.5); EOS % 2.6 % (0.0-3.0); HEMATOCRIT 40.8 % (36.0-47.0); HEMOGLOBIN 12.9 g/dl (12.0-15.5); LYMPH # 1.4 10^3/uL (1.5-5.0); LYMPH % 16.7 % (24.0-44.0); MEAN CORPUSCULAR HEMOGLOBIN 29.1 pg (27.0-33.0); MEAN CORPUSCULAR HGB CONC 31.6 g/dl (32.0-36.5); MEAN CORPUSCULAR VOLUME 91.9 fl (80.0-96.0); MONO # 0.9 10^3/uL (0.0-0.8); MONO % 10.3 % (2.0-8.0); NEUTROPHILS # 5.9 10^3/uL (1.5-8.5); NEUTROPHILS % 68.9 % (36.0-66.0); PLATELET COUNT, AUTOMATED 219 10^3/uL (150-450); RED BLOOD COUNT 4.44 10^6/uL (4.00-5.40); WHITE BLOOD COUNT 8.6 10^3/uL (4.0-10.0)
[2024-09-16 13:26] LABS: ALBUMIN 3.8 G/DL (3.2-5.2); ALKALINE PHOSPHATASE 102 U/L (35-104); ALT/SGPT 26 U/L (7.0-40); AST/SGOT 18 U/L (<34); BILIRUBIN,TOTAL 0.3 MG/DL (0.3-1.2); BLOOD UREA NITROGEN 18 MG/DL (9-23); CALCIUM LEVEL 9.3 MG/DL (8.3-10.6); CARBON DIOXIDE LEVEL 31 MMOL/L (20-31); CHLORIDE LEVEL 103 MMOL/L (98-107); CREATININE FOR GFR 0.96 MG/DL (0.55-1.30); GLOMERULAR FILTRATION RATE > 60.0 (>39); GLUCOSE, FASTING 171 MG/DL (74-106); MAGNESIUM LEVEL 1.6 MG/DL (1.8-2.4); POTASSIUM SERUM 3.9 MMOL/L (3.5-5.1); SODIUM LEVEL 144 MMOL/L (136-145); TOTAL PROTEIN 7.1 G/DL (5.7-8.2)
[2024-09-16 13:28] LABS: VITAMIN B12 LEVEL 549 PG/ML (211-911)
[2024-09-17 13:52] LABS: FREE LAMBDA LIGHT CHAINS SERUM 28.6 mg/L (5.7-26.3); KAPPA/LAMBDA RATIO SERUM 1.57 (0.26-1.65)
== END ==
LOC: M WUC 09:55
PROVIDERS: ATTEND Family Medicine
DX: D50.9 Iron deficiency anemia, unspecified (principal); E11.9 Type 2 diabetes mellitus without complications; D47.2 Monoclonal gammopathy; I50.32 Chronic diastolic (congestive) heart failure; E53.8 Deficiency of other specified B group vitamins

== ENCOUNTER 2024-09-17 08:43 | Day surgery (SDC) | payer MEDICARE, BC ==
[~2024-09-17] VITALS: Ht 167.6 cm; Wt 87.8 kg
[2024-09-17] MEDS: OFLOXACIN 0.3 % (OCUFLOX) OPTH SOL 5ML OS ONE (07:00)
[2024-09-17] MEDS: LIDOCAINE 3.5 % 1ML OPHTH TOPICAL GEL OU ONE (07:00)
[~2024-09-17 08:43] MED LIST changes: -ASPI81CH33 PO; +PHENYLEPHRINE 10% OPHTH SOL 5ML OS PRN
[2024-09-17] MEDS ORDERED: ASPI81CH33 PO (09:42)
[2024-09-17] MEDS: PHENYLEPHRINE 2.5% OPHTH SOL 2ML OS SCH (09:43)
[2024-09-17] MEDS: CYCLOPENTOLATE 1% OPHTH SOLN 2ML BTL OS SCH (09:43)
[2024-09-17] MEDS: TROPICAMIDE 1% OPHTH SOLN 15ML OS SCH (09:43)
[2024-09-17] MEDS ORDERED: MIDAZOLAM INJ 2MG/2ML VIAL As Ordered ONE (10:01)
[2024-09-17] MEDS ORDERED: fentaNYL 100 MCG/2 ML INJECTION As Ordered ONE (10:02)
[2024-09-17] MEDS: POVIDONE-IODINE 5% OPHTH PREP SOL 30ML As Ordered ONE (10:43)
[2024-09-17] MEDS: LIDOCAINE 1% SDV 5ML VIAL As Ordered ONE (10:46)
[2024-09-17] MEDS: CEFUROXIME 1MG/0.1ML INTRACAMERAL INJ As Ordered ONE (10:46)
[2024-09-17] MEDS: BSS IRRIG/VANCO(10MG)/TOBRA(5MG)/EPINEPH(1:1000-0.5CC)500ML BAG-ORONLY As Ordered ONE (10:47)
[2024-09-17 10:54] VITALS: BP 143/65; TEMP 97.4; O2SAT 96
== END 2024-09-17 11:12 | disposition home or self-care (01) ==
LOC: M SDC 08:43
PROVIDERS: ATTEND Ophthalmology
DX: E11.36 Type 2 diabetes mellitus with diabetic cataract (principal); H25.12 Age-related nuclear cataract, left eye; I10 Essential (primary) hypertension; E89.0 Postprocedural hypothyroidism; E78.00 Pure hypercholesterolemia, unspecified; Z85.3 Personal history of malignant neoplasm of breast; Z86.711 Personal history of pulmonary embolism; Z92.3 Personal history of irradiation; Z79.899 Other long term (current) drug therapy; Z79.84 Long term (current) use of oral hypoglycemic drugs; Z79.890 Hormone replacement therapy; Z87.891 Personal history of nicotine dependence; Z86.718 Personal history of other venous thrombosis and embolism
CPT/HCPCS: 66984; J0697; J2250; J3010; V2632

== ENCOUNTER 2024-10-01 07:33 | Day surgery (SDC) | payer MEDICARE, BC ==
[~2024-10-01] VITALS: Ht 167.6 cm; Wt 89.1 kg
[~2024-10-01 07:33] MED LIST changes: +ASPI81CH33 PO; +PHENYLEPHRINE 10% OPHTH SOL 5ML OD PRN; -PHENYLEPHRINE 10% OPHTH SOL 5ML OS PRN
[2024-10-01] MEDS: OFLOXACIN 0.3 % (OCUFLOX) OPTH SOL 5ML OD ONE (07:52)
[2024-10-01] MEDS: LIDOCAINE 3.5 % 1ML OPHTH TOPICAL GEL OU ONE (07:53)
[2024-10-01] MEDS: TROPICAMIDE 1% OPHTH SOLN 15ML OD SCH (07:53)
[2024-10-01] MEDS: PHENYLEPHRINE 2.5% OPHTH SOL 2ML OD SCH (07:53)
[2024-10-01] MEDS: CYCLOPENTOLATE 1% OPHTH SOLN 2ML BTL OD SCH (07:53)
[2024-10-01] MEDS ORDERED: MIDAZOLAM INJ 2MG/2ML VIAL As Ordered ONE (08:06)
[2024-10-01] MEDS ORDERED: fentaNYL 100 MCG/2 ML INJECTION As Ordered ONE (08:06)
[2024-10-01] MEDS: BSS IRRIG/VANCO(10MG)/TOBRA(5MG)/EPINEPH(1:1000-0.5CC)500ML BAG-ORONLY As Ordered ONE (08:21)
[2024-10-01] MEDS: CEFUROXIME 1MG/0.1ML INTRACAMERAL INJ As Ordered ONE (08:49)
[2024-10-01] MEDS: LIDOCAINE 1% SDV 5ML VIAL As Ordered ONE (08:49)
[2024-10-01 08:58] VITALS: BP 153/68; TEMP 97.3; O2SAT 96
== END 2024-10-01 09:31 | disposition home or self-care (01) ==
LOC: M SDC 07:33
PROVIDERS: ATTEND Ophthalmology
DX: E11.36 Type 2 diabetes mellitus with diabetic cataract (principal); H25.11 Age-related nuclear cataract, right eye; I11.0 Hypertensive heart disease with heart failure; I50.32 Chronic diastolic (congestive) heart failure; E89.0 Postprocedural hypothyroidism; E78.2 Mixed hyperlipidemia; D05.12 Intraductal carcinoma in situ of left breast; K44.9 Diaphragmatic hernia without obstruction or gangrene; K76.0 Fatty (change of) liver, not elsewhere classified; Z79.890 Hormone replacement therapy; Z79.899 Other long term (current) drug therapy; Z79.84 Long term (current) use of oral hypoglycemic drugs; E66.9 Obesity, unspecified; Z79.82 Long term (current) use of aspirin; F32.9 Major depressive disorder, single episode, unspecified; Z86.711 Personal history of pulmonary embolism; Z15.09 Genetic susceptibility to other malignant neoplasm; E53.8 Deficiency of other specified B group vitamins; D47.2 Monoclonal gammopathy
CPT/HCPCS: 66984; J0697; J2250; J3010; V2632

== ENCOUNTER → 2024-10-16 | Outpatient (CLI) | payer MEDICARE, BC ==
[~2024-10-16] MED LIST changes: -PHENYLEPHRINE 10% OPHTH SOL 5ML OD PRN
== END ==
LOC: M CARPUL 13:35
PROVIDERS: ATTEND Family Medicine
DX: I50.32 Chronic diastolic (congestive) heart failure (principal)

== ENCOUNTER → 2024-11-19 | Outpatient (CLI) | payer MEDICARE, BC | LOC: M RAD 07:35 | PROVIDERS: ATTEND Family Medicine | DX: R16.0 Hepatomegaly, not elsewhere classified (principal); D73.89 Other diseases of spleen; K80.20 Calculus of gallbladder without cholecystitis without obstruction ==

== ENCOUNTER → 2025-01-01 | Outpatient (CLI) | payer MEDICARE, BC ==
[2025-01-01 12:07] LABS: BASO # 0.0 10^3/uL (0.0-0.2); BASO % 0.4 % (0.0-1.0); EOS # 0.7 10^3/uL (0.0-0.5); EOS % 7.0 % (0.0-3.0); LYMPH # 0.9 10^3/uL (1.5-5.0); LYMPH % 8.6 % (24.0-44.0); MONO # 1.2 10^3/uL (0.0-0.8); MONO % 12.3 % (2.0-8.0); NEUTROPHILS # 7.1 10^3/uL (1.5-8.5); NEUTROPHILS % 70.6 % (36.0-66.0); PLATELET COUNT, AUTOMATED 294 10^3/uL (150-450)
[2025-01-01 12:25] LABS: ESTIMATED AVERAGE GLUCOSE 171.0 MG/DL (60-110)
[2025-01-01 12:37] LABS: ALT/SGPT 15.0 U/L (7.0-40); AST/SGOT 22.0 U/L (<34); CALCIUM LEVEL 9.3 MG/DL (8.3-10.6); CARBON DIOXIDE LEVEL 29.0 MMOL/L (20-31); CHLORIDE LEVEL 99.0 MMOL/L (98-107); CHOLESTEROL LEVEL 132.0 MG/DL (<200); CHOLESTEROL RISK RATIO 3.92 (<5); CREATININE FOR GFR 1.11 MG/DL (0.55-1.30); GLOMERULAR FILTRATION RATE 51.8 (>39); LDL CHOLESTEROL 74.8 MG/DL (<100); MAGNESIUM LEVEL 1.6 MG/DL (1.8-2.4); NON-HDL-C 98.4 MG/DL; POTASSIUM SERUM 4.5 MMOL/L (3.5-5.1); SODIUM LEVEL 138.0 MMOL/L (136-145); TRIGLYCERIDES LEVEL 118.0 MG/DL (<150)
[2025-01-01 12:43] LABS: FREE T4 1.3 NG/DL (0.89-1.76)
[2025-01-01 12:45] LABS: VITAMIN B12 LEVEL 595.0 PG/ML (211-911)
[2025-01-03 13:25] LABS: INSULIN LEVEL 27.9 uIU/mL (<=18.4)
[2025-01-04 00:44] LABS: PROTEIN, TOTAL SO 6.8 g/dL (6.1-8.1)
[2025-01-04 12:39] LABS: FREE KAPPA LIGHT CHAINS URINE 218.70 mg/L (<=32.90); FREE LAMBDA LIGHT CHAINS URINE 77.20 mg/L (<=3.79); KAPPA/LAMBDA RATIO URINE 2.83 (<=8.69)
[2025-01-05 13:55] LABS: FREE KAPPA LIGHT CHAINS SERUM 42.4 mg/L (3.3-19.4); FREE LAMBDA LIGHT CHAINS SERUM 36.5 mg/L (5.7-26.3); KAPPA/LAMBDA RATIO SERUM 1.16 (0.26-1.65)
[2025-01-06 06:25] LABS: ALBUMIN SO 3.3 g/dL (3.8-4.8); ALPHA 1 GLOBULINS SO 0.6 g/dL (0.2-0.3); ALPHA 2 GLOBULINS SO 1.1 g/dL (0.5-0.9); BETA 2 GLOBULIN SO 0.5 g/dL (0.2-0.5); BETA GLOBULIN SO 0.5 g/dL (0.4-0.6); GAMMA GLOBULINS SO 0.9 g/dL (0.8-1.7)
[2025-01-13 13:16] LABS: RBC FOLATE 680.0 NG/ML (280-791)
== END ==
LOC: M RAD 10:52
PROVIDERS: ATTEND Family Medicine
DX: J18.9 Pneumonia, unspecified organism (principal); E11.9 Type 2 diabetes mellitus without complications; D50.9 Iron deficiency anemia, unspecified; E89.0 Postprocedural hypothyroidism; E53.8 Deficiency of other specified B group vitamins; I50.32 Chronic diastolic (congestive) heart failure; D47.2 Monoclonal gammopathy; E78.2 Mixed hyperlipidemia

== ENCOUNTER → 2025-01-05 | Outpatient (CLI) | payer MEDICARE, BC ==
[~2025-01-05] MED LIST changes: +ISOVUE-370 76% 100 ML VIAL As Ordered ONE
== END ==
LOC: M RAD 09:35
PROVIDERS: ATTEND Family Medicine
DX: R79.89 Other specified abnormal findings of blood chemistry (principal); R91.8 Other nonspecific abnormal finding of lung field; N28.1 Cyst of kidney, acquired; I70.0 Atherosclerosis of aorta
CPT/HCPCS: 71275; Q9967

== ENCOUNTER → 2025-01-22 | Outpatient (CLI) | payer MEDICARE, BC ==
[~2025-01-22] MED LIST changes: -ISOVUE-370 76% 100 ML VIAL As Ordered ONE
== END ==
LOC: M WHC 11:26
PROVIDERS: ATTEND Family Medicine
DX: Z15.09 Genetic susceptibility to other malignant neoplasm (principal); R18.8 Other ascites

== ENCOUNTER → 2025-03-16 | Outpatient (CLI) | payer MEDICARE, BC | LOC: M CARPUL 13:35 | PROVIDERS: ATTEND Family Medicine | DX: Z87.891 Personal history of nicotine dependence (principal) ==

== ENCOUNTER 2025-04-22 12:29 | Day surgery (SDC) | payer MEDICARE, BC ==
[~2025-04-22] VITALS: Ht 167.6 cm; Wt 86.2 kg
[~2025-04-22 12:29] MED LIST changes: +ALBU8.5H; +ANOR1AER; +BUPR150T12 PO
[2025-04-22] MEDS ORDERED: LIDOCAINE 2% 100 MG/5 ML SDV (FOR ANES.) As Ordered ONE (12:48)
[2025-04-22 14:52] VITALS: TEMP 97.8
[2025-04-22 15:09] VITALS: BP 142/63; O2SAT 96
== END 2025-04-22 15:23 | disposition home or self-care (01) ==
LOC: M OPP 12:29
PROVIDERS: ATTEND Internal Medicine Gastroenterology
DX: D12.0 Benign neoplasm of cecum (principal); K57.30 Diverticulosis of large intestine without perforation or abscess without bleeding; K64.0 First degree hemorrhoids; Z80.0 Family history of malignant neoplasm of digestive organs; Z86.0100 Personal history of colon polyps, unspecified; K22.89 Other specified disease of esophagus; K44.9 Diaphragmatic hernia without obstruction or gangrene; K31.89 Other diseases of stomach and duodenum; K22.70 Barrett's esophagus without dysplasia; R12 Heartburn; Z79.4 Long term (current) use of insulin; Z79.84 Long term (current) use of oral hypoglycemic drugs; Z79.85 Long-term (current) use of injectable non-insulin antidiabetic drugs; Z79.899 Other long term (current) drug therapy